=== PATIENT | female | born 1955 | race Caucasian/White ===

== ENCOUNTER 2019-10-16 10:41 | Inpatient (IN) ==
--- NOTE | 2019-10-15 11:44 | Anesthesiology Consultation ---
Date of Service October 15, 2019 Assessment & Plan (1) Encounter for pre-operative examination: COVID Status: As of 10/14 nurse assessment, patient denies travel to endemic area, known exposure/sick contacts, or symptoms of COVID19. 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 She wears appropriate PPE. Preoperative COVID19 testing was not completed. Will attempt to have patient come to [facility] for [place] testing today. If unable to complete today will order for DOS. Chart Review Chart Review: Acceptable Risk for Surgery and Patient NOT seen in Pre Admission Testing History Surgery Operation Date: 10/16/19 13:50 Proposed Procedures p Right Knee Tibial Plateau Fracture Open Reduction Internal Fixation - Shamar Berman MD Height/Weight Height: 5 ft 8 in Weight: 93.44 kg Allergies Allergy/AdvReac Type Severity Reaction Status Date / Time No Known Allergies Allergy Verified 10/15/19 07:12 Medications Home Medications Medication Instructions Recorded Confirmed Last Taken amitriptyline 50 mg PO HS 10/15/19 10/15/19 Unknown bupropion HCl 150 mg PO QAM 10/15/19 10/15/19 Unknown diltiazem HCl 180 mg PO QAM 10/15/19 10/15/19 Unknown duloxetine 30 mg PO QAM 10/15/19 10/15/19 Unknown ferrous sulfate 325 mg PO QAM 10/15/19 10/15/19 Unknown lisinopril 5 mg PO QAM 10/15/19 10/15/19 Unknown meloxicam 7.5 mg PO QAM 10/15/19 10/15/19 Unknown omeprazole 20 mg PO QAM 10/15/19 10/15/19 Unknown ropinirole 0.5 mg PO HS 10/15/19 10/15/19 Unknown simvastatin 20 mg PO HS 10/15/19 10/15/19 Unknown Past Medical History Medical History Basal cell carcinoma SHOULDER AND BACK AREA Depression GERD (gastroesophageal reflux disease) Hypertension Kidney stones HX OF AND LITHOTRIPSY Past Surgical History Surgical History Hx laparoscopic cholecystectomy Hx of colonoscopy Hx of hysterectomy Hx of lithotripsy Hx of local excision of skin lesion SHOULDER AND BACK AREA Social History Smoking Status: Never smoker Do You Dip or Chew Tobacco: No Hx Alcohol Use: No Hx Substance Use: No substance use type: does not use Testing Laboratory Results 10/14/19 WBC: 7.20 H/H: 13.4/40.6 PLATELETS: 279 SODIUM: 141 POTASSIUM: 3.5 CHLORIDE: 105 CO2: 32 BUN: 14.6 CREATININE: 0.87 GLUCOSE: 89 Electrocardiogram Date: 10/14/19 Findings: + NSR @ (79bpm) Chest X-Ray Date: 10/14/19 Findings: + NAD
--- NOTE | 2019-10-16 07:36 | History & Physical Report ---
Date of Service October 16, 2019 Assessment & Plan (1) Tibial plateau fracture, right: Plan is for Open reduction internal fixation right tibial plateau fracture. The risks/benefits/alternatives including but limited to pain, stiffness, infection, DVT, PE, non-union, damage to blood vessels or nerves were discussed and she wishes to proceed. History of Present Illness 64 year old female with PMHx for BCC, HTN, GERD who presents with acute onset of right knee pain. She was stepping down from a ladder and twisted and "jammed" her knee. X-rays at the ED demonstrated depressed lateral tibial plateau fracture. CT was subsequently obtained confirming the fracture. Patient denies headaches, sweats, fevers, chills, double vision, blurred vision, cough, sore throat, dysphagia, chest pain, sob, wheezing, n/v/d/c, numbness, tingling, fatigue, urinary symptoms, mood disorders. ROS positive for right knee pain and stiffness. Allergies Allergy/AdvReac Type Severity Reaction Status Date / Time No Known Allergies Allergy Verified 10/16/19 11:34 Home Medications Home Medications Medication Instructions Recorded Confirmed Type amitriptyline 50 mg PO HS 10/15/19 10/16/19 History bupropion HCl 150 mg PO QAM 10/15/19 10/16/19 History diltiazem HCl 180 mg PO QAM 10/15/19 10/16/19 History duloxetine 30 mg PO QAM 10/15/19 10/16/19 History ferrous sulfate 325 mg PO QAM 10/15/19 10/16/19 History lisinopril 5 mg PO QAM 10/15/19 10/16/19 History meloxicam 7.5 mg PO QAM 10/15/19 10/16/19 History omeprazole 20 mg PO QAM 10/15/19 10/16/19 History ropinirole 0.5 mg PO HS 10/15/19 10/16/19 History simvastatin 20 mg PO HS 10/15/19 10/16/19 History Past Med/Surg History Medical History Basal cell carcinoma SHOULDER AND BACK AREA Depression GERD (gastroesophageal reflux disease) Hypertension Kidney stones HX OF AND LITHOTRIPSY Surgical History Hx laparoscopic cholecystectomy Hx of colonoscopy Hx of hysterectomy Hx of lithotripsy Hx of local excision of skin lesion SHOULDER AND BACK AREA Social History Smoking Status: Never smoker Second Hand Exposure: No; Do You Dip or Chew Tobacco: No; Tobacco Cessation Education Requested by Patient: No Hx Alcohol Use: No Hx Substance Use: No Preferred Language: Albanian Communication Ability: Effective 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 Beliefs That Will Affect Care: None Current Living Situation: Spouse Other Information That Helps Us Care for You: No Feels Safe at Home: Yes Safety Concerns: Feels Safe At This Time Review of Systems All systems reviewed & are unremarkable except as noted in HPI & below Physical Exam Constitutional: well developed and well nourished; no acute distress Eyes: PERRL, conjunctivae normal, anicteric sclerae ENMT: external ear and nose normal, oropharynx normal Neck: trachea midline, no thyromegaly Respiratory: normal respiratory effort; no respiratory distress Cardiovascular: Rate/Rhythm: regular rate and regular rhythm Musculoskeletal: Right knee: Mild swelling. Tender palpation lateral joint line. She can get into full extension flexion is about 40 degrees Skin: no rashes, warm and dry Neurologic: patellar DTR's 2+ bilat, sensation intact Psychiatric: A+Ox3, euthymic affect Results & Data ([facility]) Diagnostic Findings Right knee x-rays demonstrate fractures to medial and lateral tibial plateau CT scan demonstrates a depressed posterior lateral fragment of the tibial plateau. Fragment measures 1.5 x 2 cm in its greatest dimensions the degree of depression is approximately 0.7 cm. There is minimal posterior fracture of the medial tibial plateau without any significant depression.
[~2019-10-16 10:41] MED LIST: CEFAZOLIN 2000MG 2,000 MG/15 ML SYR IV SCH; LACTATED RINGER'S 1,000 ML IV SCH
[2019-10-16] MEDS ORDERED: ROPIVACAINE 0.5% 5 MG/ML 30 ML VIAL ONE (12:04)
--- NOTE | 2019-10-16 12:57 | History & Physical Bridge Note ---
Date of Service October 16, 2019 History & Physical Bridge Note I have examined the patient, reviewed the History & Physical and in the interval since the performance of the History & Physical I have noted the following changes of clinical significance: Diagnosis code had been entered incorrectly, was listed as left side. This has been corrected to the right tibial plateau fracture.
[2019-10-16] MEDS ORDERED: MIDAZOLAM HCL 1 MG/ML 2ML VIAL ONE (14:17)
[2019-10-16] MEDS ORDERED: PROPOFOL IV EMULSION 10 MG/ML 20 ML VIAL IV ONE ×3 (14:17→16:47)
[2019-10-16] MEDS ORDERED: LIDOCAINE HCL 2% 2 ML VIAL/AMP(20MG/ML) INFIL ONE (14:17)
[2019-10-16] MEDS ORDERED: fentaNYL citrate 100 MCG/2 ML VIAL ONE (14:17)
[2019-10-16] MEDS ORDERED: EPINEPHrine INJ 1 MG/ML AMP ONE (14:17)
[2019-10-16] MEDS ORDERED: BUPIVACAINE 0.5 % 5 MG/1 ML MPF 30ML VIAL ONE (14:17)
[2019-10-16] MEDS ORDERED: METOCLOPRAMIDE HCL INJ 5 MG/ML 2 ML VIAL IV PRN ×2 (14:26→18:50)
[2019-10-16] MEDS ORDERED: ePHEDrine sulfate 50 MG/ML AMP IV PRN (14:26)
[2019-10-16] MEDS ORDERED: ONDANSETRON INJ 2 MG/ML 2 ML VIAL IV PRN ×2 (14:26→18:50)
[2019-10-16] MEDS ORDERED: fentaNYL citrate 100 MCG/2 ML VIAL IV PRN (14:26)
[2019-10-16] MEDS ORDERED: HYDROmorphone INJ 2 MG/ML SYR/VIAL IV PRN (14:26)
[2019-10-16] MEDS ORDERED: PROMETHAZINE HCL 12.5 MG in SODIUM CHLORIDE 0.9% 50 ML IV PRN (14:26)
[2019-10-16] MEDS ORDERED: ATROPINE SULFATE 0.1 MG/ML 10ML SYR IV PRN (14:26)
[2019-10-16] MEDS ORDERED: ONDANSETRON INJ 2 MG/ML 2 ML VIAL ONE (15:13)
[2019-10-16] MEDS ORDERED: KETOROLAC 30 MG/ML VIAL ONE (15:13)
[2019-10-16] MEDS ORDERED: GLYCOPYRROLATE 0.2 MG/ML VIAL ONE (15:13)
[2019-10-16] MEDS ORDERED: LABETALOL HCL IV 5 MG/ML 20ML IV ONE (15:48)
--- NOTE | 2019-10-16 17:18 | Operative Report ---
Post Operative Report Pre & Post Diagnosis Operation Date: 10/16/19 13:50 Pre-Op Diagnosis: Right Tibial Plateau Fracture Post-Op Diagnosis: Right Tibial Plateau Fracture I identified the patient and participated in the time-out.: Yes Procedure Operation Date: 10/16/19 13:50 Actual Procedures p Right Knee Tibial Plateau Fracture Open Reduction Internal Fixation(Right) - Shamar Berman MD Surgeon Shamar Berman MD Concrete Block Maker Maury Mays PA-C Estimated Blood Loss 20 Findings Consistent with Post-Op Diagnosis Specimens None Drains None Anesthesia Type MAC Spinal Regional Complications none Disposition Accompanied Patient To Recovery: No Disposition: Recovery Room Indications The patient is a 64-year-old female who sustained a fall from height landing onto the right leg. CT scan demonstrated that the fracture fragment measured 2 cm x 1.5 cm with 7 mm of articular depression. The fracture fragment was posterior lateral. We discussed various treatment measures including ORIF versus nonoperative treatment and if there was continued pain possible arthroplasty options. She wishes to proceed with open reduction internal fixation. Description of Procedure Risks, benefits, and alternatives to surgery including but not limited to infection, pain, stiffness, nonunion, need for revision surgery, DVT, damage to blood vessels, damage to nerves, risks of anesthesia were discussed with the patient and they wished to proceed. The patient was identified and laterality was confirmed and marked. The patient received a preoperative antibiotic and was transferred to the operating room and placed in supine position and induced into general endotracheal anesthesia. Examination under anesthesia demonstrated a positive Lockman's, positive posterior drawer. There was increased laxity to valgus stress but with a solid endpoint. My suspicion is that given the location of the fracture she has a extreme pivot shift with instead of kissing lesions had a fracture of the posterior lateral tibial plateau in the region that is typically seen simply with bone bruising. A well-padded tourniquet was placed in the leg. The limb was then prepped and draped in the usual standard manner with ChloraPrep. The limb was exsanguinated and the tourniquet was inflated. I made a hockey style incision over the lateral aspect of leg and sharp incision through skin and then using Bovie electrocautery to achieve hemostasis. Her fracture was more posterior than is typical. I incised through the iliotibial band fascia and dissect down to the fracture site. I also dissected more posteriorly. I identified the proximal fibula and dissected the LCL and mobilized the tissue superior to this. There was zone of injury that we then explored and identified the fracture fragment. I elevated the fracture fragment into position confirmed reduction with fluoroscopy and then provisionally pinned it in place with K wires. I then backfilled the void with cancellus cubes. I then under fluoroscopic guidance positioned a 4 hole Synthes proximal tibial precontoured locking plate. Once I was satisfied with the positioning of the plate and provisionally pinned this into position. I confirmed reduction of the fracture on AP and lateral fluoroscopy views. I also confirmed plate placement and alignment. I ensure that the plate was posterior enough in order to get appropriate fixation into the fracture fragment and this was a little bit more posterior than typical placement for tibial plateau fracture. I then placed a nonlocking screw distally to reduce the plate to bone. I then placed a rafting screw in a locking hole proximally. I then confirmed we are maintaining reduction and placed an additional 2 locking screws. The most posterior locking screw I attempted to place but was starting to go out the back of the tibia and did not place a screw in this most posterior hole. I then placed 2 kickstand screws into position. The nonlocking screw we had used initially was too proud. This was removed and we placed a locking screw in the distal aspect of the plate. The wound was thoroughly irrigated. The iliotibial band was loosely reapproximated with interrupted #1 Vicryl suture, but not overly tight as to prevent causing an iatrogenic compartment syndrome. Subcutaneous tissues closed with interrupted 2-0 Vicryl suture. The skin was closed with kale. A sterile dressing was applied and a brace locked in extension was placed. All needle and sponge counts were correct at the end of the procedure. The patient was transferred to the PACU in stable condition without apparent complication. I attest to the content of the Intraoperative Record and any orders documented therein. Any exceptions are noted below.
--- NOTE | 2019-10-16 17:20 | Fluoroscopy Report ---
FL knee RT 1 or 2V CLINICAL HISTORY: RIGHT KNEE TIBIAL PLATEAU ORIF COMPARISON STUDY: None. FLUOROSCOPY TIME: 1 minute and 43 seconds. FLUOROSCOPIC IMAGES: 2 FINDINGS: Fluoroscopy was provided during internal fixation of the proximal right tibia. Hardware is intact. Alignment appears anatomic. There are no unexpected radiopaque foreign bodies. IMPRESSION: Fluoroscopy provided for proximal right tibial internal fixation. ACT 112: Negative or not required by law. Electronically signed by: Dre Limon M.D. 10/16/2019 5:19 PM
--- NOTE | 2019-10-16 18:01 | Anesthesiology Progress Note ---
Date of Service October 16, 2019 Anesthesia Post Procedure Vital Signs Vital Signs: Temp Pulse Pulse Resp BP Pulse Ox 10/16/19 17:50 36.9 C 84 19 147/90 H 95 10/16/19 17:40 89 22 148/87 H 99 10/16/19 17:32 36.8 C 89 18 133/81 97 10/16/19 11:47 36.9 C 73 18 146/81 H 94 Transfer of Care Handoff Completed per policy Notes Mental Status: alert / awake / arousable Patient Amnestic to Procedure: Yes Nausea / Vomiting: adequately controlled Pain: adequately controlled Airway Patency, RR, SpO2: stable & adequate BP & HR: stable & adequate Hydration State: stable & adequate Neuraxial Anesthesia: was administered and sensory block is resolving Anesthetic Complications: no major complications apparent and Pt Satisfied with anesthetic care
[2019-10-16] MEDS ORDERED: NALOXONE HCL 0.4 MG/1 ML VIAL/CARP IV PRN (18:50)
[2019-10-16] MEDS ORDERED: HYDROmorphone INJ 0.5 MG/0.5 ML SYR IV PRN (18:50)
[2019-10-16] MEDS ORDERED: bisacodyL 10 MG SUPP PR PRN (18:50)
[2019-10-16] MEDS ORDERED: MAGNESIUM HYDROXIDE SUSP 30 ML UDC PO PRN (18:50)
[2019-10-16] MEDS ORDERED: SODIUM CHLORIDE 0.9% 1000ML 1,000 ML IV SCH (19:15)
[2019-10-16] MEDS: ACETAMINOPHEN 500 MG TAB PO SCH (20:33)
[2019-10-16] MEDS: AMITRIPTYLINE HCL 50 MG TAB PO SCH (20:33)
[2019-10-16] MEDS: SIMVASTATIN 20 MG TAB PO SCH (20:33)
[2019-10-16] MEDS: ROPINIROLE HCL 0.25 MG TABLET PO SCH (20:33)
[2019-10-16] MEDS: SENNA 8.6 MG TAB PO SCH (20:33)
[2019-10-16] MEDS: ASPIRIN 81 MG ECTAB PO SCH (20:33)
[2019-10-16] MEDS: DOCUSATE SODIUM 100 MG CAP PO SCH (20:33)
[2019-10-16] MEDS: CEFAZOLIN 2000MG 2,000 MG/15 ML SYR IV SCH (23:24)
[2019-10-17] MEDS: OXYCODONE HCL IR 5 MG TAB (IMMEDIATE RELEASE) PO PRN ×2 (02:23→15:58)
[2019-10-17] MEDS: ACETAMINOPHEN 500 MG TAB PO SCH ×3 (06:06→21:42)
[2019-10-17 06:22] LABS: Hematocrit (blood only) 37.6 % (37-47); Hemoglobin 12.3 g/dL (12.0-16.0); Mean Corpuscular Hemoglobin 30.5 pg (25-34); Mean Corpuscular Hgb Conc 32.7 g/dL (32-36); Mean Corpuscular Volume 93.3 fL (80-100); Mean Platelet Volume 9.5 fL (7.4-10.4); Platelet Count 233 K/uL (130-400); RDW Coefficient of Variation 12.9 % (11.5-14.5); RDW Standard Deviation 43.5 fL (36.4-46.3); Red Blood Count 4.03 M/uL (4.2-5.4); White Blood Count 8.43 K/uL (4.8-10.8)
[2019-10-17 06:57] LABS: BUN Creatinine Ratio 15.3 (10-20); Calcium 8.5 mg/dl (8.5-10.1); Creatinine Clr Calc Pharmacy 73.6 ml/min; Est GFR (African American) 76.7; Est GFR (Non-African American) 66.2; Potassium 4.3 mmol/L (3.5-5.1)
[2019-10-17] MEDS: CEFAZOLIN 2000MG 2,000 MG/15 ML SYR IV SCH (08:29)
--- NOTE | 2019-10-17 10:05 | Orthopedic Progress Note ---
Date of Service October 17, 2019 Assessment & Plan (1) Tibial plateau fracture, right: Postop day 1 status post ORIF right tibial plateau fracture Hypoxia? Chart was showing that her pulse ox had read 34 and 1 minute later was back to 91. Patient relates a history of this happening once before many years ago. Dr. Saez seeing the patient currently and feels that this was likely a skewed reading from the pulse oximeter. Will defer to his recommendations at this time. PT/OT protocols. Toe-touch weightbearing right lower extremity DVT prophylaxis-aspirin p.o. twice daily Pain management-oxycodone, hydromorphone. Patient states that she limits her medications at home when taking for pain. She states that she is not overly sensitive to pain medications and has had Percocet in the past without causing oversedation. DC planning-plan for discharge to home when medically stable Admission and Anticipated Discharge Date Admission Date: October 16, 2019 Subjective Postop day 1 Patient lying in bed awake and alert. She currently has O2 per nasal cannula 2 L. Nursing related that the patient had dropped her O2 saturations down quite low last night. Respiratory therapy was called and put her on 15 L per Ventimask. She apparently responded well to the regimen and currently does not remember much of what happened last night. During my interview, Dr. Saez, who has been consulted has come in to see the patient as well. Currently she feels fine and denies any shortness of breath, chest pain, lightheadedness. Her pain is controlled with her right knee. Physical Exam Physical Exam: Immobilizer was loosened and dressing is clean, dry, and intact. Calves are soft nontender. Neurovascular intact. Toes are mobile. Immobilizer was placed back on. Results & Data ([facility]) Vital Signs (Past 12 Hours) Vital Signs Temp Pulse Resp BP BP Pulse Ox 10/17/19 07:11 37 C 74 16 135/76 93 10/17/19 06:22 93 10/17/19 06:10 95 10/17/19 06:04 93 10/17/19 04:39 91 10/17/19 04:33 93 10/17/19 04:32 87 L 10/17/19 04:19 94 10/17/19 03:34 36.5 C 90 16 133/70 91 10/17/19 03:33 34 L 10/16/19 23:30 36.8 C 74 18 151/80 H 91 10/16/19 22:04 36.8 C 82 16 150/80 H 92 Laboratory Results Laboratory Results WBC 8.43 K/uL (4.8-10.8) 10/17/19 06:03 RBC 4.03 M/uL (4.2-5.4) L 10/17/19 06:03 Hgb 12.3 g/dL (12.0-16.0) 10/17/19 06:03 Hct 37.6 % (37-47) 10/17/19 06:03 MCV 93.3 fL (80-100) 10/17/19 06:03 MCH 30.5 pg (25-34) 10/17/19 06:03 MCHC 32.7 g/dL (32-36) 10/17/19 06:03 RDW Std Deviation 43.5 fL (36.4-46.3) 10/17/19 06:03 RDW Coeff of Florina 12.9 % (11.5-14.5) 10/17/19 06:03 Plt Count 233 K/uL (130-400) 10/17/19 06:03 MPV 9.5 fL (7.4-10.4) 10/17/19 06:03 Sodium 140 mmol/L (136-145) 10/17/19 06:03 Potassium 4.3 mmol/L (3.5-5.1) 10/17/19 06:03 Chloride 108 mmol/L (98-107) H 10/17/19 06:03 Carbon Dioxide 29 mmol/L (21-32) 10/17/19 06:03 Anion Gap 4.0 (3-11) 10/17/19 06:03 BUN 14 mg/dl (7-18) 10/17/19 06:03 Creatinine 0.91 mg/dl (0.6-1.2) 10/17/19 06:03 Est Cr Clr Drug Dosing 73.6 ml/min 10/17/19 06:03 Est GFR ( Amer) 76.7 10/17/19 06:03 Est GFR (Non-Af Amer) 66.2 10/17/19 06:03 BUN/Creatinine Ratio 15.3 (10-20) 10/17/19 06:03 Glucose 130 mg/dl (70-99) H 10/17/19 06:03 Calcium 8.5 mg/dl (8.5-10.1) 10/17/19 06:03 COVID-19 Eval Order Cancelled 10/16/19 11:25 COVID-19 PCR Cancelled 10/16/19 11:25 SARS-CoV-2, RNA, NAAT NEGATIVE (NEGATIVE) 10/16/19 Unknown Blood Type B Positive 10/16/19 12:24 Antibody Screen NEGATIVE 10/16/19 12:24
[2019-10-17] MEDS: DOCUSATE SODIUM 100 MG CAP PO SCH ×2 (10:12→20:48)
[2019-10-17] MEDS: DULOXETINE HCL 30 MG CAP PO SCH (10:12)
[2019-10-17] MEDS: FERROUS SULFATE 325 MG TAB PO SCH (10:13)
[2019-10-17] MEDS: ASPIRIN 81 MG ECTAB PO SCH ×2 (10:13→20:48)
[2019-10-17] MEDS: MULTIVITAMIN TAB PO SCH (10:14)
[2019-10-17] MEDS: BuPROPion XL 150 MG TABCR PO SCH (10:16)
[2019-10-17] MEDS: dilTIAZem ER 180 MG CAPCR PO SCH (10:16)
[2019-10-17] MEDS: PANTOprazole 40 MG TAB PO SCH (10:16)
[2019-10-17] MEDS: lisinopriL 5 MG TAB PO SCH (10:17)
--- NOTE | 2019-10-17 19:26 | Hospitalist Progress Note ---
Date of Service October 17, 2019 Assessment & Plan (1) Hypoxia: by far most c/w atelectasis - no dyspnea, exam findings/cough after IS quite c/w this. does not fit w pneumonia (no cough/dyspnea/fever/etc) or PE (does have fracture and immobility but no tachycardia/dyspnea/pleuritic pain) --> for now encourage IS use (5x/hr) try to wean O2, increase activity. -probably was also incited some by resp depression from pain meds when taken at night and suspect some underlying SHERWIN (also notes always tired) -wean O2, supportive care. if can't wean, then w/u further (2) Neck pain: no findings of hx or PE concerning for bony lesions is c/w muscle strain (3) Somatic dysfunction of cervical region: OMT as above voltaren gel to area (4) DVT prophylaxis: per ortho (asa bid and scd) Admission and Anticipated Discharge Date Admission Date: October 16, 2019 Subjective asked to see for hypoxia, later asked to revisit for neck and ear pain hypoxia - no shortness of breath. no cough. no chest pain. no tachycardia. no f/c/s. didn't feel it even when pulse ox was down overnight. later revisit while O2 wasn't able to be weaned, still no short of breath neck pain - when she fell she hit her head. neg CT head at outside hospital. pain side of neck and ear. crunching sounds when she moves neck around some Review of Systems Review of Systems: All systems reviewed & are unremarkable except as noted in HPI & below Physical Exam Physical Exam: gen aaox3 pleasant nad heent nc at mmm cardio reg no r/m/g lungs faint bibasilar rales no other adventitious findings no rhonchi no wheeze no accessory msucles good effort msk/ost - no significant bony tenderness to palp full ROM L lateral Cspine paraspinals high tone/tender/decreased ROM - worst at mastoid region (but soft tissue tenderness at insertion not bony tenderness above) - direct/inhibitory pressure/gentle unwinding - improved - pt tolerated well. pt demonstrated incentive spirometry - coughed after each use Results & Data Results & Data ([facility]) Vital Signs (Past 12 Hours) Vital Signs Temp Pulse Resp BP Pulse Ox Pulse Ox 10/17/19 16:03 100.0 F H 78 16 147/74 H 92 10/17/19 15:13 88 L 10/17/19 13:23 90 10/17/19 11:03 98 PG Care Time/CCT Total # of Minutes Spent Total Time Spent with Patient: Total time spent is greater than 50% in coordination of care (as documented) at patient's floor/unit and/or counseling patient: Coding Level of Care Code 85404 Subseq Hosp Care Lvl 3 Diagnoses Hypoxia R09.02 Neck pain M54.2 Somatic dysfunction of cervical region M99.01 DVT prophylaxis Z29.9 CPT Codes Musculoskeletal - Musculoskeletal: 733[address] Oste[address] Alan Tr 1-2 Body regions ([id number])
[2019-10-17] MEDS: DICLOFENAC SOD 1% GEL 100 GM TUBE EXT SCH (20:42)
[2019-10-17] MEDS: SENNA 8.6 MG TAB PO SCH (20:48)
[2019-10-17] MEDS: ROPINIROLE HCL 0.25 MG TABLET PO SCH (20:48)
[2019-10-17] MEDS: SIMVASTATIN 20 MG TAB PO SCH (20:48)
[2019-10-17] MEDS: AMITRIPTYLINE HCL 50 MG TAB PO SCH (20:48)
[2019-10-18] MEDS: OXYCODONE HCL IR 5 MG TAB (IMMEDIATE RELEASE) PO PRN ×2 (00:19→08:23)
[2019-10-18] MEDS: ACETAMINOPHEN 500 MG TAB PO SCH (05:54)
[2019-10-18 06:19] LABS: Basophils # (auto) 0.03 K/uL (0-0.2); Basophils % (auto) 0.4 %; Eosinophils # (auto) 0.25 K/uL (0-0.5); Eosinophils % (auto) 3.5 %; Hematocrit (blood only) 34.5 % (37-47); Hemoglobin 11.4 g/dL (12.0-16.0); Immature Granulocytes # (auto) 0.01 K/uL (0.00-0.02); Immature Granulocytes % (auto) 0.1 %; Lymphocytes # (auto) 1.41 K/uL (1.2-3.4); Lymphocytes % (auto) 19.8 %; Mean Corpuscular Hemoglobin 30.5 pg (25-34); Mean Corpuscular Volume 92.2 fL (80-100); Mean Platelet Volume 9.6 fL (7.4-10.4); Monocytes # (auto) 0.86 K/uL (0.11-0.59); Monocytes % (auto) 12.1 %; Neutrophils # (auto) 4.57 K/uL (1.4-6.5); Neutrophils % (auto) 64.1 %; Platelet Count 237 K/uL (130-400); RDW Coefficient of Variation 12.8 % (11.5-14.5); RDW Standard Deviation 43.3 fL (36.4-46.3); Red Blood Count 3.74 M/uL (4.2-5.4); White Blood Count 7.13 K/uL (4.8-10.8)
[2019-10-18 07:21] LABS: Calcium 8.4 mg/dl (8.5-10.1); Creatinine Clr Calc Pharmacy 81.6 ml/min; Est GFR (Non-African American) 75.1; Potassium 3.5 mmol/L (3.5-5.1)
[2019-10-18] MEDS: PANTOprazole 40 MG TAB PO SCH (08:19)
[2019-10-18] MEDS: DOCUSATE SODIUM 100 MG CAP PO SCH (08:19)
[2019-10-18] MEDS: BuPROPion XL 150 MG TABCR PO SCH (08:19)
[2019-10-18] MEDS: FERROUS SULFATE 325 MG TAB PO SCH (08:19)
[2019-10-18] MEDS: ASPIRIN 81 MG ECTAB PO SCH (08:19)
[2019-10-18] MEDS: dilTIAZem ER 180 MG CAPCR PO SCH (08:20)
[2019-10-18] MEDS: MULTIVITAMIN TAB PO SCH (08:20)
[2019-10-18] MEDS: DULOXETINE HCL 30 MG CAP PO SCH (08:20)
[2019-10-18] MEDS: lisinopriL 5 MG TAB PO SCH (08:20)
[2019-10-18] MEDS: DICLOFENAC SOD 1% GEL 100 GM TUBE EXT SCH (08:20)
--- NOTE | 2019-10-18 08:33 | Orthopedic Progress Note ---
Date of Service October 18, 2019 Assessment & Plan (1) Tibial plateau fracture, right: Postop day 2 status post ORIF right tibial plateau fracture Appears to be maintaining O2 sats on room air. Will have PT work with her again today. PT/OT protocols. Toe-touch weightbearing right lower extremity DVT prophylaxis-aspirin p.o. twice daily Pain management-oxycodone, hydromorphone. Patient states that she limits her medications at home when taking for pain. She states that she is not overly sensitive to pain medications and has had Percocet in the past without causing oversedation. DC planning-plan for discharge to home when medically stable Admission and Anticipated Discharge Date Admission Date: October 16, 2019 Subjective POD 2 Patient sitting up in bed. No complaints. Denies SOB,CP,LH. O2 sats this AM 93 on room air. Pain controlled. Physical Exam Physical Exam: Incision is C/D/I. Calves are soft,NT. NV intact. Immobilizer reapplied. Results & Data ([facility]) Vital Signs (Past 12 Hours) Vital Signs Temp Pulse Resp BP Pulse Ox 10/18/19 07:00 36.9 C 82 16 152/82 H 93 10/18/19 05:54 92 10/18/19 00:23 93 10/17/19 23:10 37.1 C 72 15 127/66 89 L Laboratory Results Laboratory Results WBC 7.13 K/uL (4.8-10.8) 10/18/19 05:37 RBC 3.74 M/uL (4.2-5.4) L 10/18/19 05:37 Hgb 11.4 g/dL (12.0-16.0) L 10/18/19 05:37 Hct 34.5 % (37-47) L 10/18/19 05:37 MCV 92.2 fL (80-100) 10/18/19 05:37 MCH 30.5 pg (25-34) 10/18/19 05:37 MCHC 33.0 g/dL (32-36) 10/18/19 05:37 RDW Std Deviation 43.3 fL (36.4-46.3) 10/18/19 05:37 RDW Coeff of Florina 12.8 % (11.5-14.5) 10/18/19 05:37 Plt Count 237 K/uL (130-400) 10/18/19 05:37 MPV 9.6 fL (7.4-10.4) 10/18/19 05:37 Immature Gran % (Auto) 0.1 % 10/18/19 05:37 Neut % (Auto) 64.1 % 10/18/19 05:37 Lymph % (Auto) 19.8 % 10/18/19 05:37 [place] % (Auto) 12.1 % 10/18/19 05:37 Eos % (Auto) 3.5 % 10/18/19 05:37 Baso % (Auto) 0.4 % 10/18/19 05:37 Neut # (Auto) 4.57 K/uL (1.4-6.5) 10/18/19 05:37 Lymph # (Auto) 1.41 K/uL (1.2-3.4) 10/18/19 05:37 [place] # (Auto) 0.86 K/uL (0.11-0.59) H 10/18/19 05:37 Eos # (Auto) 0.25 K/uL (0-0.5) 10/18/19 05:37 Baso # (Auto) 0.03 K/uL (0-0.2) 10/18/19 05:37 Immature Gran # (Auto) 0.01 K/uL (0.00-0.02) 10/18/19 05:37 Sodium 140 mmol/L (136-145) 10/18/19 05:37 Potassium 3.5 mmol/L (3.5-5.1) D 10/18/19 05:37 Chloride 107 mmol/L (98-107) 10/18/19 05:37 Carbon Dioxide 29 mmol/L (21-32) 10/18/19 05:37 Anion Gap 4.0 (3-11) 10/18/19 05:37 BUN 11 mg/dl (7-18) 10/18/19 05:37 Creatinine 0.82 mg/dl (0.6-1.2) 10/18/19 05:37 Est Cr Clr Drug Dosing 81.6 ml/min 10/18/19 05:37 Est GFR ( Amer) 87.0 10/18/19 05:37 Est GFR (Non-Af Amer) 75.1 10/18/19 05:37 BUN/Creatinine Ratio 13.0 (10-20) 10/18/19 05:37 Glucose 104 mg/dl (70-99) H 10/18/19 05:37 Calcium 8.4 mg/dl (8.5-10.1) L 10/18/19 05:37 COVID-19 Eval Order Cancelled 10/16/19 11:25 COVID-19 PCR Cancelled 10/16/19 11:25 SARS-CoV-2, RNA, NAAT NEGATIVE (NEGATIVE) 10/16/19 Unknown Blood Type B Positive 10/16/19 12:24 Antibody Screen NEGATIVE 10/16/19 12:24
--- NOTE | 2019-10-18 14:09 | Discharge Summary ---
Date of Service October 18, 2019 Admission HPI Per Admitting Provider 64 year old female with PMHx for BCC, HTN, GERD who presents with acute onset of right knee pain. She was stepping down from a ladder and twisted and "jammed" her knee. X-rays at the ED demonstrated depressed lateral tibial plateau fracture. CT was subsequently obtained confirming the fracture. Patient denies headaches, sweats, fevers, chills, double vision, blurred vision, cough, sore throat, dysphagia, chest pain, sob, wheezing, n/v/d/c, numbness, tingling, fatigue, urinary symptoms, mood disorders. ROS positive for right knee pain and stiffness. Admission Exam Per Admitting Provider Constitutional: well developed and well nourished; no acute distress Eyes: PERRL, conjunctivae normal, anicteric sclerae ENMT: external ear and nose normal, oropharynx normal Neck: trachea midline, no thyromegaly Respiratory: normal respiratory effort; no respiratory distress Cardiovascular: Rate/Rhythm: regular rate and regular rhythm Musculoskeletal: Right knee: Mild swelling. Tender palpation lateral joint line. She can get into full extension flexion is about 40 degrees Skin: no rashes, warm and dry Neurologic: patellar DTR's 2+ bilat, sensation intact Psychiatric: A+Ox3, euthymic affect Principal Diagnosis Right knee lateral tibial plateau fracture, hypoxia Discharge Exam Constitutional well developed and well nourished; no acute distress Eyes PERRL, conjunctivae normal, anicteric sclerae ENMT external ear and nose normal, oropharynx normal Neck trachea midline, no thyromegaly Respiratory normal respiratory effort; no respiratory distress Cardiovascular Rate/Rhythm: regular rate and regular rhythm Skin no rashes, warm and dry Neurologic patellar DTR's 2+ bilat, sensation intact Psychiatric A+Ox3, euthymic affect Discharge Data Allergies Allergy/AdvReac Type Severity Reaction Status Date / Time No Known Allergies Allergy Verified 10/16/19 11:34 Consultations 10/16/19 18:50 Consult Case Management - Discharge Planning Routine 10/17/19 08:51 Consult Hospitalist Routine Procedures Performed Operation Date: 10/16/19 13:50 Actual Procedures p Right Knee Tibial Plateau Fracture Open Reduction Internal Fixation(Right) - Shamar Berman MD Ordered Studies 10/16/19 07:00 FL fluoroscopy <1hr Routine FL knee RT 1 or 2V Routine 10/16/19 14:26 US - OR guided needle placemen Stat Hospital Course (1) Tibial plateau fracture, right: Patient presented for same day admission following ORIF right lateral tibial plateau fracture on 10/16/19. She tolerated procedure well. Post- operatively, her activity was progressed and well tolerated. Labs remained stable- lowest hemoglobin recorded:11.4. On POD#0 patient developed hypoxia overnight after taking oxycodone. She had a recorded O2 sat of 34 and then quickly returned to 91. It is unclear if the the 34 was a true finding or error, however her saturations were in the low 90s on O2. Dr. Carlos Saez of medical service was consulted for medical management during admission. Pain controlled on oral medications. Please refer to daily progress notes and PT notes for complete details. By POD#2 patient's hypoxia had resolved. After exam on 10/18/19, patient was felt to be stable for discharge home. She is to be TTWB on her RLE. Patient will f/u in the office in about 2 weeks for further evaluation including x-rays and incision check, sooner if having any issues or concerns. Postop day 2 status post ORIF right tibial plateau fracture Appears to be maintaining O2 sats on room air. Will have PT work with her again today. PT/OT protocols. Toe-touch weightbearing right lower extremity DVT prophylaxis-aspirin p.o. twice daily Pain management-oxycodone, hydromorphone. Patient states that she limits her medications at home when taking for pain. She states that she is not overly sensitive to pain medications and has had Percocet in the past without causing oversedation. DC planning-plan for discharge to home when medically stable Lab Results 10/16/19 10/16/19 10/16/19 Range/Units 11:25 11:25 12:24 WBC (4.8-10.8) K/uL RBC (4.2-5.4) M/uL Hgb (12.0-16.0) g/dL Hct (37-47) % MCV (80-100) fL MCH (25-34) pg MCHC (32-36) g/dL RDW Std Deviation (36.4-46.3) fL RDW Coeff of Florina (11.5-14.5) % Plt Count (130-400) K/uL MPV (7.4-10.4) fL Immature Gran % (Auto) % Neut % (Auto) % Lymph % (Auto) % Chaves % (Auto) % Eos % (Auto) % Baso % (Auto) % Neut # (Auto) (1.4-6.5) K/uL Lymph # (Auto) (1.2-3.4) K/uL Chaves # (Auto) (0.11-0.59) K/uL Eos # (Auto) (0-0.5) K/uL Baso # (Auto) (0-0.2) K/uL Immature Gran # (Auto) (0.00-0.02) K/uL Sodium (136-145) mmol/L Potassium (3.5-5.1) mmol/L Chloride (98-107) mmol/L Carbon Dioxide (21-32) mmol/L Anion Gap (3-11) BUN (7-18) mg/dl Creatinine (0.6-1.2) mg/dl Est Cr Clr Drug Dosing ml/min Est GFR ( Amer) Est GFR (Non-Af Amer) BUN/Creatinine Ratio (10-20) Glucose (70-99) mg/dl Calcium (8.5-10.1) mg/dl COVID-19 Eval Order Cancelled COVID-19 PCR Cancelled SARS-CoV-2, RNA, NAAT (NEGATIVE) Blood Type B Positive Antibody Screen NEGATIVE 10/16/19 10/17/19 10/17/19 Range/Units Unknown 06:03 06:03 WBC 8.43 (4.8-10.8) K/uL RBC 4.03 L (4.2-5.4) M/uL Hgb 12.3 (12.0-16.0) g/dL Hct 37.6 (37-47) % MCV 93.3 (80-100) fL MCH 30.5 (25-34) pg MCHC 32.7 (32-36) g/dL RDW Std Deviation 43.5 (36.4-46.3) fL RDW Coeff of Florina 12.9 (11.5-14.5) % Plt Count 233 (130-400) K/uL MPV 9.5 (7.4-10.4) fL Immature Gran % (Auto) % Neut % (Auto) % Lymph % (Auto) % Chaves % (Auto) % Eos % (Auto) % Baso % (Auto) % Neut # (Auto) (1.4-6.5) K/uL Lymph # (Auto) (1.2-3.4) K/uL Chaves # (Auto) (0.11-0.59) K/uL Eos # (Auto) (0-0.5) K/uL Baso # (Auto) (0-0.2) K/uL Immature Gran # (Auto) (0.00-0.02) K/uL Sodium 140 (136-145) mmol/L Potassium 4.3 (3.5-5.1) mmol/L Chloride 108 H (98-107) mmol/L Carbon Dioxide 29 (21-32) mmol/L Anion Gap 4.0 (3-11) BUN 14 (7-18) mg/dl Creatinine 0.91 (0.6-1.2) mg/dl Est Cr Clr Drug Dosing 73.6 ml/min Est GFR ( Amer) 76.7 Est GFR (Non-Af Amer) 66.2 BUN/Creatinine Ratio 15.3 (10-20) Glucose 130 H (70-99) mg/dl Calcium 8.5 (8.5-10.1) mg/dl COVID-19 Eval Order COVID-19 PCR SARS-CoV-2, RNA, NAAT NEGATIVE (NEGATIVE) Blood Type Antibody Screen 10/18/19 10/18/19 Range/Units 05:37 05:37 WBC 7.13 (4.8-10.8) K/uL RBC 3.74 L (4.2-5.4) M/uL Hgb 11.4 L (12.0-16.0) g/dL Hct 34.5 L (37-47) % MCV 92.2 (80-100) fL MCH 30.5 (25-34) pg MCHC 33.0 (32-36) g/dL RDW Std Deviation 43.3 (36.4-46.3) fL RDW Coeff of Florina 12.8 (11.5-14.5) % Plt Count 237 (130-400) K/uL MPV 9.6 (7.4-10.4) fL Immature Gran % (Auto) 0.1 % Neut % (Auto) 64.1 % Lymph % (Auto) 19.8 % Chaves % (Auto) 12.1 % Eos % (Auto) 3.5 % Baso % (Auto) 0.4 % Neut # (Auto) 4.57 (1.4-6.5) K/uL Lymph # (Auto) 1.41 (1.2-3.4) K/uL Chaves # (Auto) 0.86 H (0.11-0.59) K/uL Eos # (Auto) 0.25 (0-0.5) K/uL Baso # (Auto) 0.03 (0-0.2) K/uL Immature Gran # (Auto) 0.01 (0.00-0.02) K/uL Sodium 140 (136-145) mmol/L Potassium 3.5 D (3.5-5.1) mmol/L Chloride 107 (98-107) mmol/L Carbon Dioxide 29 (21-32) mmol/L Anion Gap 4.0 (3-11) BUN 11 (7-18) mg/dl Creatinine 0.82 (0.6-1.2) mg/dl Est Cr Clr Drug Dosing 81.6 ml/min Est GFR ( Amer) 87.0 Est GFR (Non-Af Amer) 75.1 BUN/Creatinine Ratio 13.0 (10-20) Glucose 104 H (70-99) mg/dl Calcium 8.4 L (8.5-10.1) mg/dl COVID-19 Eval Order COVID-19 PCR SARS-CoV-2, RNA, NAAT (NEGATIVE) Blood Type Antibody Screen Total Time Total Time Spent Total Time Spent (In Minutes): 20 Discharge Plan Discharge Items Patient Disposition: Home - Self-Care Reason For Visit: Tibial Plateau Fracture Discharge Diagnosis: Right tibial plateau fracture Activity: Per Instructions section Weightbearing: Right non-weightbearing Weightbearing Comment: With walker or crutches. Use immobilizer at all times. May remove for bathing or changing clothes. Non-emergency contact: Surgeon Call non-emergency contact if: your pain is not controlled, your temperature is above 101.5, your wound has increased redness and your wound has increased drainage Follow-up/Referrals: Eliane Heller M.D. [Primary Care Provider] - Diet: Regular Addtl Attending Provider Instructions: Nonweightbearing on the right lower extremity. Elevate the right lower extremity when at rest. Change dressing daily. Continue to use an Eduardo wrap around the knee to secure the dressing and provide compression. Ice packs to the right knee while at rest. Keep the leg in full extension with the immobilizer is off. Continue to use the immobilizer at all times except for when using ice packs, bathing, changing clothes. Follow-up with Dr. Berman in 10 to 14 days from the day of surgery. Call for an appointment if one has not been made for you. Stand-Alone Forms: My [facility] blogTV, Opioid Pain Management Medications and DC Order Prescriptions: New aspirin 81 mg Tablet,Delayed Release (Dr/Ec) 81 mg PO BID 30 Days Qty: 60 RF: 0 acetaminophen 500 mg Tablet 1,000 mg PO Q8 14 Days Qty: 84 RF: 0 oxycodone 5 mg Tablet 5 mg PO Q4H MDD 6 tabs PRN (Reason: pain) Qty: 18 RF: 0 Continued diltiazem HCl 180 mg Capsule,Extended Release 24 Hr 180 mg PO QAM RF: 0 amitriptyline 50 mg Tablet 50 mg PO HS RF: 0 simvastatin 20 mg Tablet 20 mg PO HS RF: 0 ropinirole 0.5 mg Tablet 0.5 mg PO HS RF: 0 lisinopril 5 mg Tablet 5 mg PO QAM RF: 0 ferrous sulfate 325 mg (65 mg iron) Tablet,Delayed Release (Dr/Ec) 325 mg PO QAM RF: 0 bupropion HCl 150 mg Tablet Extended Release 24 Hr 150 mg PO QAM RF: 0 duloxetine 30 mg Capsule,Delayed Release(Dr/Ec) 30 mg PO QAM RF: 0 omeprazole 20 mg Tablet,Delayed Release (Dr/Ec) 20 mg PO QAM RF: 0 Discontinued meloxicam 7.5 mg Tablet 7.5 mg PO QAM RF: 0 Discharge Orders: Discharge Order (Routine); Ordered 10/18/19 Ordered By: Samuel Rodriguez/Other Patient Handouts: DVT Post Op Prevention Admission Data Admit Date/Time: 10/16/19 17:35 Attending Provider: Shamar Berman Admit Provider: Shamar Berman Primary Care Provider: Eliane Heller Other Providers: Chris Colón Other Interventions: Discharge Summary Assessment (RN) Last Done: 10/18/19 10:51
--- NOTE | 2019-10-18 19:59 | Hospitalist Progress Note ---
Date of Service October 18, 2019 Assessment & Plan (1) Hypoxia: by far most c/w atelectasis - no dyspnea, exam findings/cough after IS quite c/w this. does not fit w pneumonia (no cough/dyspnea/fever/etc) or PE (does have fracture and immobility but no tachycardia/dyspnea/pleuritic pain) --> and improved as would be expected for atelectasis treatment -probably was also incited some by resp depression from pain meds when taken at night and suspect some underlying SHERWIN (also notes always tired) -off O2, stable for home. continue to use incentive spirometer at home for next several days. sleep study as outpt in near future (2) Neck pain: no findings of hx or PE concerning for bony lesions is c/w muscle strain improved w OMT and diclofenac gel (3) Somatic dysfunction of cervical region: OMT done 10/16 voltaren gel to area (4) DVT prophylaxis: per ortho (asa bid and scd) Admission and Anticipated Discharge Date Admission Date: October 16, 2019 Subjective feeling better. off O2. no sob. no new symptosm at all. neck pain feels better as well. Review of Systems Review of Systems: Unobtainable due to cognitive status Physical Exam Physical Exam: vitals noted nad. aaox3 pleasant. heent nc at mmm. lungs cta b/l no r/r/w good effort no accessory muscles. no focla neuro deficits noted PG Care Time/CCT Total # of Minutes Spent Total Time Spent with Patient: Total time spent is greater than 50% in coordination of care (as documented) at patient's floor/unit and/or counseling patient: Coding Level of Care Code 95608 Subseq Hosp Care Lvl 2 Diagnoses Hypoxia R09.02 Neck pain M54.2 Somatic dysfunction of cervical region M99.01 DVT prophylaxis Z29.9
== END 2019-10-18 11:28 | disposition home or self-care (01) | DRG 494 ==
LOC: ASU 10:41 → 3W 10:41 → OBSVTOIN 17:35

== ENCOUNTER 2019-10-27 12:21 | Inpatient (IN) ==
[2019-10-27] MEDS ORDERED: VANCOMYCIN HCL 2,000 MG in SODIUM CHLORIDE 0.9% 500 ML IV STA (12:57)
[2019-10-27] MEDS ORDERED: VANCOMYCIN CONSULT ACTIVE PRN ×2 (12:57→21:33)
--- NOTE | 2019-10-27 13:02 | Emergency Department Note ---
History of Present Illness General Chief complaint: Knee Injury/Pain Stated complaint: knee pain Time Seen by Provider: 10/27/19 12:47 History of Present Illness Maximum Pain Intensity: 6 64-year-old female who presents to the emergency department for evaluation of right knee pain, swelling, redness and chills. The patient reports undergoing surgery on 10/16/2019 for a knee fracture. The surgery was performed by Dr. Berman. The patient has her postop follow-up appointment scheduled this Saturday (3 days from now). The patient reports that she was feeling fine until last evening when she started to notice significant discomfort. The thought that she had some redness to the area as well. When she awoke this morning, the redness and swelling, along with pain was much worse. The patient has not checked her temperature at home. Her called 911, and the patient was transferred to the emergency department via ALS ambulance for further evaluation. The patient was administered IV fentanyl and normal saline en route. She has not noticed any unusual swelling of the leg. She denies any chest pain, shortness of breath, headache, neck pain, urinary symptoms or diarrhea. Her postoperative progression has otherwise been uneventful. Home Medications Home Medications Medication Instructions Recorded Confirmed Type amitriptyline 50 mg PO 10/15/19 10/27/19 History bupropion HCl 150 mg PO [facility] 10/15/19 10/27/19 History diltiazem HCl 180 mg PO [facility] 10/15/19 10/27/19 History duloxetine 30 mg PO [facility] 10/15/19 10/27/19 History ferrous sulfate 325 mg PO [facility] 10/15/19 10/27/19 History lisinopril 5 mg PO [facility] 10/15/19 10/27/19 History omeprazole 20 mg PO [facility] 10/15/19 10/27/19 History ropinirole 0.5 mg PO 10/15/19 10/27/19 History simvastatin 20 mg PO 10/15/19 10/27/19 History acetaminophen 1,000 mg PO Q8 14 Days #84 tab 10/17/19 10/27/19 Rx aspirin 81 mg PO BID 30 Days #60 tab 10/17/19 10/27/19 Rx oxycodone 5 mg PO Q4H PRN #18 tab MDD 6 tabs 10/17/19 10/27/19 Rx Allergies Allergy/AdvReac Type Severity Reaction Status Date / Time No Known Allergies Allergy Verified 10/27/19 16:35 Past Med/Surg History Medical History Basal cell carcinoma SHOULDER AND BACK AREA Depression GERD (gastroesophageal reflux disease) Hypertension Kidney stones HX OF AND LITHOTRIPSY Surgical History Hx laparoscopic cholecystectomy Hx of colonoscopy Hx of hysterectomy Hx of lithotripsy Hx of local excision of skin lesion SHOULDER AND BACK AREA Social History Smoking Status: Never smoker Second Hand Exposure: No; Hx Alcohol Use: No Hx Substance Use: No Preferred Language: Kyrgyz Communication Ability: Effective Heel Seat Flap Stapler Required: No Beliefs That Will Affect Care: None marital status: Current Living Situation: Spouse Current Living Situation Comment: house Feels Safe at Home: Yes Review of Systems 10 system review was performed and was negative except for pertinent positives and negatives as indicated in history of present illness Physical Exam Vital Signs Vital Signs - 24 hr 10/27/19 12:30 10/27/19 13:00 10/27/19 13:10 Temperature 37.8 C H Temperature Source Oral Pulse Rate 99 H Pulse Rate from SpO2 Sensor 98 H 98 H Pulse Strength Normal Respiratory Rate 18 18 Respiratory Effort / Characteristics Non-Labored Spontaneous Respiratory Depth Normal Respiratory Pattern Regular Blood Pressure 163/96 H 158/92 H Blood Pressure Mean 127 125 Pulse Oximetry 94 93 93 Oxygen Delivery Method Room Air Room Air Room Air Oxygen Flow Rate Sepsis Recent Fever Within 48 Hours Yes Sepsis New/Unexplained Change in Mental Status No Sepsis Action Taken by Nursing No Action Required Oxygen Flow Rate - Titration Pulse Oximetry Post Tiitration 10/27/19 13:33 10/27/19 14:06 10/27/19 14:30 Temperature Temperature Source Pulse Rate 104 H 102 H Pulse Rate from SpO2 Sensor 104 H 102 H Pulse Strength Respiratory Rate 13 22 Respiratory Effort / Characteristics Non-Labored Spontaneous Respiratory Depth Respiratory Pattern Blood Pressure 161/90 H 170/90 H Blood Pressure Mean 104 102 Pulse Oximetry 93 96 91 Oxygen Delivery Method Room Air Room Air Room Air Oxygen Flow Rate Sepsis Recent Fever Within 48 Hours Sepsis New/Unexplained Change in Mental Status Sepsis Action Taken by Nursing Oxygen Flow Rate - Titration Pulse Oximetry Post Tiitration 10/27/19 15:00 10/27/19 15:29 10/27/19 15:30 Temperature Temperature Source Pulse Rate 105 H 103 H 104 H Pulse Rate from SpO2 Sensor Pulse Strength Respiratory Rate 19 17 17 Respiratory Effort / Characteristics Respiratory Depth Respiratory Pattern Blood Pressure 172/96 H 164/94 H 172/99 H Blood Pressure Mean 132 113 130 Pulse Oximetry 92 92 93 Oxygen Delivery Method Nasal Cannula Nasal Cannula Nasal Cannula Oxygen Flow Rate 2 2 2 Sepsis Recent Fever Within 48 Hours Sepsis New/Unexplained Change in Mental Status Sepsis Action Taken by Nursing Oxygen Flow Rate - Titration Pulse Oximetry Post Tiitration 10/27/19 15:40 10/27/19 16:00 10/27/19 16:30 Temperature Temperature Source Pulse Rate 103 H 105 H Pulse Rate from SpO2 Sensor Pulse Strength Respiratory Rate 18 15 Respiratory Effort / Characteristics Respiratory Depth Respiratory Pattern Blood Pressure 178/97 H 172/91 H Blood Pressure Mean 141 110 Pulse Oximetry 89 L 93 92 Oxygen Delivery Method Room Air Nasal Cannula Nasal Cannula Nasal Cannula Oxygen Flow Rate 0 2 2 Sepsis Recent Fever Within 48 Hours Sepsis New/Unexplained Change in Mental Status Sepsis Action Taken by Nursing Oxygen Flow Rate - Titration 2 Pulse Oximetry Post Tiitration 92 10/27/19 16:34 10/27/19 17:00 10/27/19 17:30 Temperature 38.9 C H Temperature Source Oral Pulse Rate 106 H 109 H Pulse Rate from SpO2 Sensor Pulse Strength Respiratory Rate 20 19 Respiratory Effort / Characteristics Respiratory Depth Respiratory Pattern Blood Pressure 165/88 H 149/82 H Blood Pressure Mean 106 102 Pulse Oximetry 93 92 Oxygen Delivery Method Nasal Cannula Nasal Cannula Oxygen Flow Rate 2 2 Sepsis Recent Fever Within 48 Hours Sepsis New/Unexplained Change in Mental Status Sepsis Action Taken by Nursing Oxygen Flow Rate - Titration Pulse Oximetry Post Tiitration CONSTITUTIONAL: Healthy and well nourished. Alert and oriented X 3. Patient appears in moderate discomfort. The patient does not appear toxic. HEENT: Normocephalic, atraumatic. Pupils equal, round and reactive. NECK: Full active range of motion without discomfort. LYMPHATICS: No cervical chain adenopathy. RESPIRATORY: Clear to auscultation bilaterally with no wheezing, crackles, rhonchi or stridor. CARDIOVASCULAR: Regular rate and rhythm with no murmurs, rubs or gallops. GASTROINTESTINAL: Bowel sounds present in all quadrants. Abdomen is soft and nontender to palpation. MUSCULOSKELETAL: Examination of the right lateral knee shows intact kale with notable peripheral erythema about the surgical incision site. The patient does have some bloody drainage from the distal incision. The patient has a mild joint effusion. Attempted range of motion of the knee was difficult secondary to patient discomfort. Pedal pulses are intact. Negative logroll of the hip. INTEGUMENTARY: No rash or other significant dermatologic conditions noted. HEMATOLOGIC: No ecchymosis or petechiae. PSYCHIATRIC: Positive affect. NEUROLOGIC: No focal neurologic deficits noted. Course Course Patient history and physical exam were performed. Nurse's notes were reviewed. Review of vital signs shows an oral temperature of 37.8 C. The patient is not tachycardic or hypotensive. The patient does appear in moderate discomfort. I also reviewed prior documentation from the patient's surgery on 10/16/2019. The patient underwent ORIF for a right lateral tibial plateau fracture; this was performed by Dr. Berman with [facility]. It is also noted that [facility] were also consulted for hypertension. IV access was established, and labs were drawn, including blood cultures x2. Because of concern for possible sepsis, the patient was also initially hydrated with 2 L of normal saline until further lab work could be completed. The patient was administered IV morphine and Zofran for better pain control. After blood cultures were drawn, the patient was administered IV vancomycin. Review of labs shows a notable leukocytosis with left shift and bandemia. CMP shows an elevated glucose of 130. Magnesium is 1.7. CRP and sed rate were both markedly elevated. Lactate was normal, however procalcitonin is significantly elevated at 7.73. A portable chest x-ray was normal. ECG shows a possible junctional rhythm of 100 bpm. No previous ECGs were available for comparison. The patient was placed on monitor technician given concern for sepsis. At this point, I had already discussed the case with Dr. Garcia, ED attending physician, as well as our clinical pharmacist regarding treatment options and concern for sepsis. The patient was also seen and examined by Dr. Garcia. Decision was made to also add Zosyn antibiotics for broad antibiotic coverage. The case was also discussed with Samuel Roberts PA-C who also discussed the case with Dr. Shine both of which were in surgery at the time of consultation. Dr. esquivel but did request CT imaging of the knee to look for any collections of fluid that would be consistent with abscess. The patient did require additional IV morphine for persistent pain. Noncontrast CT of the knee does not show any drainable fluid collections. Expected postoperative findings are also noted with a moderate joint effusion. I was then asked by orthopedics to consult the [facility] hospitalist service for evaluation and admission, consulting their services for the patient's orthopedic issue. The patient was seen by Dr. Waggoner who graciously accepted and admitted the patient. Please see the hospitalist and orthopedic service notes for further treatment and final disposition plan. Administered Medications Discontinued Medications Acetaminophen (Acetaminophen 1000 Mg/100 Ml Iv) 1,000 mg IV NOW STA Stop: 10/27/19 16:35 Last Admin: 10/27/19 16:51 Dose: 1,000 mg Documented by: [id number] Vancomycin HCl 2,000 mg/ (Sodium Chloride) 540 mls @ 200 mls/hr IV NOW STA Stop: 10/27/19 15:38 Last Infusion: 10/27/19 16:20 Dose: 0 mls/hr Documented by: [id number] Admin: 10/27/19 13:35 Dose: 200 mls/hr Documented by: [id number] Piperacillin Sod/Tazobactam Sod (Zosyn) 4.5 gm in 120 mls @ 240 mls/hr IV NOW ONE Stop: 10/27/19 16:33 Last Infusion: 10/27/19 17:21 Dose: 0 mls/hr Documented by: [id number] Admin: 10/27/19 16:51 Dose: 240 mls/hr Documented by: [id number] Cefepime HCl 2,000 mg/ Syringe 20 mls @ 5.5 mls/min IV NOW STA; Protocol Stop: 10/27/19 16:07 Last Admin: 10/27/19 16:23 Dose: Not Given Documented by: [id number] Metronidazole (Flagyl) 500 mg in 100 mls @ 100 mls/hr IV NOW STA Stop: 10/27/19 17:03 Last Admin: 10/27/19 16:23 Dose: Not Given Documented by: [id number] Miscellaneous Information (Vancomycin Consult Active) 1 ea N/A UD PRN PRN Reason: Consult Stop: 11/26/19 12:56 Last Admin: 10/27/19 16:21 Dose: 1 ea Documented by: [id number] Miscellaneous Information (Piperacill/Tazobac Consult Active) 1 ea N/A UD PRN PRN Reason: Consult Stop: 11/26/19 16:03 Last Admin: 10/27/19 16:21 Dose: 1 ea Documented by: [id number] Morphine Sulfate (Morphine Sulfate 4 Mg/Ml 1 Ml Carp\Vial) 4 mg IV NOW STA Stop: 10/27/19 13:45 Last Admin: 10/27/19 13:54 Dose: 4 mg Documented by: [id number] Morphine Sulfate (Morphine Sulfate 4 Mg/Ml 1 Ml Carp\Vial) 4 mg IV NOW STA Stop: 10/27/19 16:23 Last Admin: 10/27/19 16:27 Dose: 4 mg Documented by: [id number] Critical Care Time Critical Care Time: Yes Total Critical Care Time: 45 I have personally spent approximately 45 minutes of critical care time in the direct management of this patient. This includes bedside care, interpretation of diagnostic studies, and testing, discussion with consultants, patient, and family members, and other required patient management activities. This 45 minutes is in excess of all separately billable procedures. Patient also has concerning laboratory findings for possible sepsis. I did provide close monitoring of the patient while in the emergency department with no hemodynamic compromise. Patient was provided broad antibiotic coverage urgency department. Medical Decision Making Medical Records Attestation: I reviewed the patient's medical records. Home Medications Current Medication List: was personally reviewed by me Laboratory Data Attestation: I reviewed the patient's lab results. Result diagrams: 10/27/19 11:16 10/27/19 11:16 Lab Results 10/27/19 10/27/19 10/27/19 Range/Units 11:16 11:16 11:16 WBC 17.07 H (4.8-10.8) K/uL RBC 4.28 (4.2-5.4) M/uL Hgb 13.0 (12.0-16.0) g/dL Hct 39.3 (37-47) % MCV 91.8 (80-100) fL MCH 30.4 (25-34) pg MCHC 33.1 (32-36) g/dL RDW Std Deviation 42.5 (36.4-46.3) fL RDW Coeff of Florina 12.7 (11.5-14.5) % Plt Count 486 H (130-400) K/uL MPV 9.6 (7.4-10.4) fL Immature Gran % (Auto) 0.3 % Neut % (Auto) 91.6 % Lymph % (Auto) 4.0 % [place] % (Auto) 4.0 % Eos % (Auto) 0.0 % Baso % (Auto) 0.1 % Neut # (Auto) 15.63 H (1.4-6.5) K/uL Lymph # (Auto) 0.69 L (1.2-3.4) K/uL [place] # (Auto) 0.68 H (0.11-0.59) K/uL Eos # (Auto) 0.00 (0-0.5) K/uL Baso # (Auto) 0.02 (0-0.2) K/uL Immature Gran # (Auto) 0.05 H (0.00-0.02) K/uL ESR (0-21) mm/hr PT 11.3 (9.0-12.0) Seconds INR 1.1 (0.9-1.1) APTT 29.6 (21.0-31.0) Seconds PTT Ratio 1.1 Sodium 136 (136-145) mmol/L Potassium 3.5 (3.5-5.1) mmol/L Chloride 100 (98-107) mmol/L Carbon Dioxide 26 (21-32) mmol/L Anion Gap 10.0 (3-11) BUN 12 (7-18) mg/dl Creatinine 0.99 (0.6-1.2) mg/dl Est Cr Clr Drug Dosing Not Reportable Est GFR ( Amer) 69.3 Est GFR (Non-Af Amer) 59.8 BUN/Creatinine Ratio 11.8 (10-20) Glucose 130 H (70-99) mg/dl Lactate (0.4-2.0) mmol/L Calcium 9.6 (8.5-10.1) mg/dl Magnesium 1.7 L (1.8-2.4) mg/dl Total Bilirubin 0.7 (0.2-1) mg/dl AST 12 L (15-37) U/L ALT 21 (12-78) U/L Alkaline Phosphatase 77 (45-117) U/L C-Reactive Protein (0-0.29) mg/dl Total Protein 7.6 (6.4-8.2) gm/dl Albumin 3.4 (3.4-5.0) gm/dl Globulin 4.2 H (2.5-4.0) gm/dl Albumin/Globulin Ratio 0.8 L (0.9-2) Procalcitonin (0-0.5) ng/ml 10/27/19 10/27/19 10/27/19 Range/Units 11:16 11:16 11:16 WBC (4.8-10.8) K/uL RBC (4.2-5.4) M/uL Hgb (12.0-16.0) g/dL Hct (37-47) % MCV (80-100) fL MCH (25-34) pg MCHC (32-36) g/dL RDW Std Deviation (36.4-46.3) fL RDW Coeff of Florina (11.5-14.5) % Plt Count (130-400) K/uL MPV (7.4-10.4) fL Immature Gran % (Auto) % Neut % (Auto) % Lymph % (Auto) % [place] % (Auto) % Eos % (Auto) % Baso % (Auto) % Neut # (Auto) (1.4-6.5) K/uL Lymph # (Auto) (1.2-3.4) K/uL [place] # (Auto) (0.11-0.59) K/uL Eos # (Auto) (0-0.5) K/uL Baso # (Auto) (0-0.2) K/uL Immature Gran # (Auto) (0.00-0.02) K/uL ESR 37 H (0-21) mm/hr PT (9.0-12.0) Seconds INR (0.9-1.1) APTT (21.0-31.0) Seconds PTT Ratio Sodium (136-145) mmol/L Potassium (3.5-5.1) mmol/L Chloride (98-107) mmol/L Carbon Dioxide (21-32) mmol/L Anion Gap (3-11) BUN (7-18) mg/dl Creatinine (0.6-1.2) mg/dl Est Cr Clr Drug Dosing Est GFR ( Amer) Est GFR (Non-Af Amer) BUN/Creatinine Ratio (10-20) Glucose (70-99) mg/dl Lactate (0.4-2.0) mmol/L Calcium (8.5-10.1) mg/dl Magnesium (1.8-2.4) mg/dl Total Bilirubin (0.2-1) mg/dl AST (15-37) U/L ALT (12-78) U/L Alkaline Phosphatase (45-117) U/L C-Reactive Protein 4.31 H (0-0.29) mg/dl Total Protein (6.4-8.2) gm/dl Albumin (3.4-5.0) gm/dl Globulin (2.5-4.0) gm/dl Albumin/Globulin Ratio (0.9-2) Procalcitonin 7.73 H (0-0.5) ng/ml 10/27/19 Range/Units 13:18 WBC (4.8-10.8) K/uL RBC (4.2-5.4) M/uL Hgb (12.0-16.0) g/dL Hct (37-47) % MCV (80-100) fL MCH (25-34) pg MCHC (32-36) g/dL RDW Std Deviation (36.4-46.3) fL RDW Coeff of Florina (11.5-14.5) % Plt Count (130-400) K/uL MPV (7.4-10.4) fL Immature Gran % (Auto) % Neut % (Auto) % Lymph % (Auto) % [place] % (Auto) % Eos % (Auto) % Baso % (Auto) % Neut # (Auto) (1.4-6.5) K/uL Lymph # (Auto) (1.2-3.4) K/uL [place] # (Auto) (0.11-0.59) K/uL Eos # (Auto) (0-0.5) K/uL Baso # (Auto) (0-0.2) K/uL Immature Gran # (Auto) (0.00-0.02) K/uL ESR (0-21) mm/hr PT (9.0-12.0) Seconds INR (0.9-1.1) APTT (21.0-31.0) Seconds PTT Ratio Sodium (136-145) mmol/L Potassium (3.5-5.1) mmol/L Chloride (98-107) mmol/L Carbon Dioxide (21-32) mmol/L Anion Gap (3-11) BUN (7-18) mg/dl Creatinine (0.6-1.2) mg/dl Est Cr Clr Drug Dosing Est GFR ( Amer) Est GFR (Non-Af Amer) BUN/Creatinine Ratio (10-20) Glucose (70-99) mg/dl Lactate 2.0 (0.4-2.0) mmol/L Calcium (8.5-10.1) mg/dl Magnesium (1.8-2.4) mg/dl Total Bilirubin (0.2-1) mg/dl AST (15-37) U/L ALT (12-78) U/L Alkaline Phosphatase (45-117) U/L C-Reactive Protein (0-0.29) mg/dl Total Protein (6.4-8.2) gm/dl Albumin (3.4-5.0) gm/dl Globulin (2.5-4.0) gm/dl Albumin/Globulin Ratio (0.9-2) Procalcitonin (0-0.5) ng/ml Imaging Data Attestation: I personally reviewed and interpreted this imaging study as follows: My Impression: My interpretation of a portable chest x-ray does not show any consolidations, pneumothorax or cardiac prominence. My interpretation of a noncontrast CT of the right knee does not show any obvious fluid collections. Presurgical findings are noted with a moderate joint effusion. Radiologist reports were also reviewed. Radiologist's Impression: CT knee RT wo con HISTORY: 64 years-old Female Postop infection patient presents with reported postoperative infection. COMPARISON: Fluoroscopic images of the right knee 10/16/2019 TECHNIQUE: Multiple axial CT images of the right knee were obtained without the use of IV contrast. A dose lowering technique was used consistent with the principals of ALARA. FINDINGS: There is a moderate sized joint effusion. Moderate anterolateral subcutaneous edema is noted with skin thickening. No drainable fluid collection or opaque foreign body identified. Lateral skin kale. Arterial calcifications. Lateral plate and screw fusion is noted within the proximal tibia. The hardware appears intact. Or acute mildly comminuted fractures involving the posterior aspects of the medial and lateral tibial plateaus fracture displacement measuring up to approximately 4 mm. 5 x 2 mm intra-articular loose body is noted anterior to the lateral femoral condyle on image 138 series 3. Mild patellofemoral osteoarthritis. Imaged distal femur and patella appear intact. No osseous erosions. IMPRESSION: 1. Acute comminuted fractures involve the posterior aspects of the medial and lateral tibial plateaus with slight displacement of the lateral tibial plateau fracture. 5 x 2 mm intra-articular loose body is noted adjacent to lateral femoral condyle. 2. Lateral plate and screw fusion of the proximal tibia with intact hardware. 3. Lateral skin kale are noted in addition to lateral skin thickening with anterolateral subcutaneous edema. Findings may be on a postsurgical basis or may reflect cellulitis. No drainable fluid collection or opaque foreign body. 4. Moderate joint effusion. ECG Data Attestation: I personally reviewed and interpreted this ECG as follows: Indication: + other (Postoperative infection) Rate (beats per minute): 100 Rhythm: + junctional ECG Intervals/blocks: + Normal QRS ECG [place]: + Normal Comparison ECG Date: no prior available Blood Pressure Blood Pressure Findings: Elevated blood pressure MDM Narrative Cardiac monitoring: An order was placed for continuous cardiac monitoring. The monitor shows a rate of 100 bpm with a possible accelerated junctional rhythm. groundwater monitoring technician history was reviewed throughout the evaluation, and no dysrhythmias were noted. Patient presents the emergency department with history and findings concerning for postoperative infection. Given that the patient underwent ORIF of a lateral tibial plateau fracture, the joint is certainly a concern. CT imaging does not show any collections of fluid consistent with abscess, therefore I do not suspect that intraoperative joint irrigation is warranted at this time. I deferred diagnostic arthrocentesis to orthopedics. Laboratory studies are concerning for sepsis as well, possibly septic arthritis. Although the patient remained hemodynamically stable while in the emergency department, she did have an increasing oral temperature. Her procalcitonin is also significantly elevated with a normal lactate level. Broad coverage antibiotic treatment was initiated. Impression & Plan Deep postoperative wound infection, Closed fracture of right tibial plateau Discharge Plan Visit Data Chief Complaint: Knee Injury/Pain Stated Complaint: knee pain ED Provider: Jayson Garcia ED Midlevel Provider: John Bourgeois Discharge Problem: Deep postoperative wound infection, Closed fracture of right tibial plateau Patient Disposition: Admitted As Inpatient Discharge Instructions Interventions: ED Discharge Assessment Last Done: 10/27/19 20:29 Addendum (Blank) Addendum October 27, 2019 22:30 HPI: [id number] who is s/p ORIF of right tibial plateau fx 10/15 presents with fevers and new redness and warmth at incision site. PE: Febrile 38.9, HR 100s otherwise VSS, ill appearing, in NAD. NC/AT Tachcyardic rate, regular rhythm , CTAB Abd soft NT/ND Ext: RLE incision site with surrounding erythema, warmth, tenderness. No crepitus. AP: Suspected sepsis in setting of recent ORIF with likely cellulitis as source. WBC 17, procal 7, ESR and CRP elevated. IVF, Broad spectrum abx. PA d/w orthopedics. Admit. I reviewed the patient's past medical history, medications, and visit nursing notes. I discussed the case with the physician surgical assistant certified, examined the patient, and agree with the findings and plan as documented in PAC [place]'s note.
[2019-10-27 13:21] LABS: Basophils # (auto) 0.02 K/uL (0-0.2); Basophils % (auto) 0.1 %; Hematocrit (blood only) 39.3 % (37-47); Immature Granulocytes # (auto) 0.05 K/uL (0.00-0.02); Immature Granulocytes % (auto) 0.3 %; Lymphocytes # (auto) 0.69 K/uL (1.2-3.4); Mean Corpuscular Hemoglobin 30.4 pg (25-34); Mean Corpuscular Hgb Conc 33.1 g/dL (32-36); Mean Corpuscular Volume 91.8 fL (80-100); Mean Platelet Volume 9.6 fL (7.4-10.4); Monocytes # (auto) 0.68 K/uL (0.11-0.59); Neutrophils # (auto) 15.63 K/uL (1.4-6.5); Neutrophils % (auto) 91.6 %; Platelet Count 486 K/uL (130-400); RDW Coefficient of Variation 12.7 % (11.5-14.5); RDW Standard Deviation 42.5 fL (36.4-46.3); Red Blood Count 4.28 M/uL (4.2-5.4); White Blood Count 17.07 K/uL (4.8-10.8)
[2019-10-27 13:26] LABS: INR 1.1 (0.9-1.1); Partial Thromboplastin Ratio 1.1; Partial Thromboplastin Time 29.6 Seconds (21.0-31.0); Prothrombin Time 11.3 Seconds (9.0-12.0)
[2019-10-27 13:29] LABS: Alanine Aminotransferase 21 U/L (12-78); Albumin Level 3.4 gm/dl (3.4-5.0); Aspartate Aminotransferase 12 U/L (15-37); BUN Creatinine Ratio 11.8 (10-20); Blood Urea Nitrogen 12 mg/dl (7-18); Calcium 9.6 mg/dl (8.5-10.1); Carbon Dioxide 26 mmol/L (21-32); Chloride 100 mmol/L (98-107); Est GFR (African American) 69.3; Est GFR (Non-African American) 59.8; Glucose 130 mg/dl (70-99); Magnesium 1.7 mg/dl (1.8-2.4); Potassium 3.5 mmol/L (3.5-5.1); Sodium 136 mmol/L (136-145)
[2019-10-27 13:31] LABS: Albumin Globulin Ratio 0.8 (0.9-2); Alkaline Phosphatase 77 U/L (45-117); Bilirubin,Total 0.7 mg/dl (0.2-1); Globulin 4.2 gm/dl (2.5-4.0); Total Protein 7.6 gm/dl (6.4-8.2)
[2019-10-27] MEDS ORDERED: MoRPHine SULFATE 4 MG/ML 1 ML CARP\\VIAL IV STA ×2 (13:44→16:22)
--- NOTE | 2019-10-27 13:50 | XRay Report ---
SINGLE VIEW CHEST CLINICAL HISTORY: Sepsis. FINDINGS: An AP, portable, upright chest radiograph is obtained. No prior studies are available for c omparison at the time of dictation. The examination is degraded by portable technique, apical lordoti c positioning, and patient rotation. The cardiomediastinal silhouette is unremarkable. The lungs and pleural spaces are clear. No pneumothorax is seen. The skeletal structures are osteopenic. The bony thorax is grossly intact. IMPRESSION: No active disease in the chest. ACT 112: Negative or not required by law. Electronically signed by: Giancarlo Mckeon M.D. 10/27/2019 1:49 PM
--- NOTE | 2019-10-27 14:31 | CT Scan Report ---
CT knee RT wo con HISTORY: 64 years-old Female Postop infection patient presents with reported postoperative infection . COMPARISON: Fluoroscopic images of the right knee 10/16/2019 TECHNIQUE: Multiple axial CT images of the right knee were obtained without the use of IV contrast. A dose lowering technique was used consistent with the principals of RORY. FINDINGS: There is a moderate sized joint effusion. Moderate anterolateral subcutaneous edema is noted with ski n thickening. No drainable fluid collection or opaque foreign body identified. Lateral skin kale. Arterial calcifications. Lateral plate and screw fusion is noted within the proximal tibia. The hardw are appears intact. Or acute mildly comminuted fractures involving the posterior aspects of the media l and lateral tibial plateaus fracture displacement measuring up to approximately 4 mm. 5 x 2 mm intr a-articular loose body is noted anterior to the lateral femoral condyle on image 138 series 3. Mild p atellofemoral osteoarthritis. Imaged distal femur and patella appear intact. No osseous erosions. IMPRESSION: 1. Acute comminuted fractures involve the posterior aspects of the medial and lateral tibial plateaus with slight displacement of the lateral tibial plateau fracture. 5 x 2 mm intra-articular loose body is noted adjacent to lateral femoral condyle. 2. Lateral plate and screw fusion of the proximal tibia with intact hardware. 3. Lateral skin kale are noted in addition to lateral skin thickening with anterolateral subcutane ous edema. Findings may be on a postsurgical basis or may reflect cellulitis. No drainable fluid ramon ection or opaque foreign body. 4. Moderate joint effusion. ACT 112: Negative or not required by law. The above report was generated using voice recognition software. It may contain grammatical, syntax o r spelling errors. Electronically signed by: Cheo Palacios M.D. 10/27/2019 2:30 PM
[2019-10-27] MEDS ORDERED: metroNIDAZOLE 500 MG/100 ML BAG IV STA (16:04)
[2019-10-27] MEDS ORDERED: PIPERACILL/TAZOBAC CONSULT ACTIVE PRN (16:04)
[2019-10-27] MEDS ORDERED: CEFEPIME 2,000 MG in SYRINGE 7.5 ML IV STA (16:04)
[2019-10-27] MEDS ORDERED: PIPERACILLIN/TAZOBACTAM 4.5 GM/120 ML BAG IV ONE (16:04)
[2019-10-27] MEDS ORDERED: ACETAMINOPHEN 1000 MG/100 ML IV IV STA (16:34)
--- NOTE | 2019-10-27 18:20 | History & Physical Report ---
Date of Service October 27, 2019 Assessment & Plan (1) Septic arthritis: sepsis present on admission -almost certainly gram positive, given recent surgery and current severity of illness -vanco -ortho consult -serial exams -pain control (2) Tibial plateau fracture, right: concern on proximity of hardware to area of infection -serial exams, ortho input, vanco (3) Hypertension: BP currently high but given septic appearance - safer to hold ACEi for now, follow. not in a dangerous range w BP (4) GERD (gastroesophageal reflux disease): continue home PPI (5) Depression: continue home meds (6) DVT prophylaxis: lovenox (7) Discharge planning issues: admit med/surg [facility] hospitalists, [facility] consult PT/OT eval and treat depending on ultimate status of knee and hardware, may have fairly prolonged hospitalization History of Present Illness Chief Complaint: knee pain Primary Care Provider: Eliane Heller very pleasant 64f known to me from when she was here a little over a week ago for tibial plateau fracture and repair. was at home doing well - yesterday morning feeling fine- then as the day went on she noted fairly abruptly onset of R knee pain as well as fevers, chills, and sweats. she bundled up with blankets and tried to sleep but was unable to really ever get comfortable - notes that the pain in her knee - and especially the back of her knee - was unbearable. ongoing f/c/s. eventually presented to ER - found to have an overall septic appearance, we were asked to see for ongoing care. no other complaints - no respiratory, GI, , etc. ROS otherwise negative except for as above no significant medical fam hx, but of note her dtr is an balloon tester in [facility]. Allergies Allergy/AdvReac Type Severity Reaction Status Date / Time No Known Allergies Allergy Verified 10/27/19 16:35 Home Medications Home Medications Medication Instructions Recorded Confirmed Type amitriptyline 50 mg PO HS 10/15/19 10/27/19 History bupropion HCl 150 mg PO QAM 10/15/19 10/27/19 History diltiazem HCl 180 mg PO QAM 10/15/19 10/27/19 History duloxetine 30 mg PO QAM 10/15/19 10/27/19 History ferrous sulfate 325 mg PO QAM 10/15/19 10/27/19 History lisinopril 5 mg PO QAM 10/15/19 10/27/19 History omeprazole 20 mg PO QAM 10/15/19 10/27/19 History ropinirole 0.5 mg PO HS 10/15/19 10/27/19 History simvastatin 20 mg PO HS 10/15/19 10/27/19 History acetaminophen 1,000 mg PO Q8 14 Days #84 tab 10/17/19 10/27/19 Rx aspirin 81 mg PO BID 30 Days #60 tab 10/17/19 10/27/19 Rx oxycodone 5 mg PO Q4H PRN #18 tab MDD 6 tabs 10/17/19 10/27/19 Rx Past Med/Surg History Medical History (Updated 10/27/19 @ 18:26 by Carlos Saez DO) Basal cell carcinoma SHOULDER AND BACK AREA Depression GERD (gastroesophageal reflux disease) Hypertension Kidney stones HX OF AND LITHOTRIPSY Surgical History Hx laparoscopic cholecystectomy Hx of colonoscopy Hx of hysterectomy Hx of lithotripsy Hx of local excision of skin lesion SHOULDER AND BACK AREA Social History Smoking Status: Never smoker Second Hand Exposure: No; Hx Alcohol Use: No Hx Substance Use: No Preferred Language: Spanish Communication Ability: Effective Cleaning Custodian Required: No Beliefs That Will Affect Care: None marital status: Current Living Situation: Spouse Feels Safe at Home: Yes Review of Systems Review of Systems: All systems reviewed & are unremarkable except as noted in HPI & below Physical Exam Physical Exam: gen aaox3 pleasant but fatigued appearing, does appear in discomfort from knee as well. no respiratory distress. appears ill but not fully toxic. heent nc at mmm neck full ROM cardio reg no r/m/g lungs cta b/l no rrw good effort no accessory muscles no conversational dyspnea no distress abd soft nd nt no masses ext no cyanosis, clubbing. LLE no edema no joint tenderness. RLE incision from prior surgery - still with kale. dark red appearance around incision - but not really very tender, no exudate. no fluctuance under incision. R knee with easily palpable moderate or maybe large effusion, fairly warm, surprisingly not red - but exquisitely tender on palpation of joint space at any angle - medial, lateral - and also palpably swollen and exquisitely tender posterior neuro - cn 2-12 grossly intact gross motor and sensory intact MSK - R knee described in extremities. L knee totally normal. no other notable bony abnormalities/joint effusions/etc mental - good recent and remote recall normal mood and affect, good judgement and insight Results & Data Results & Data ([facility]) Vital Signs (Past 12 Hours) Vital Signs Temp Pulse Resp BP Pulse Ox 10/27/19 17:30 109 H 19 149/82 H 92 10/27/19 17:00 106 H 20 165/88 H 93 10/27/19 16:34 102.0 F H 10/27/19 16:30 105 H 15 172/91 H 92 10/27/19 16:00 103 H 18 178/97 H 93 10/27/19 15:40 89 L 10/27/19 15:30 104 H 17 172/99 H 93 10/27/19 15:29 103 H 17 164/94 H 92 10/27/19 15:00 105 H 19 172/96 H 92 10/27/19 14:30 102 H 22 170/90 H 91 10/27/19 14:06 104 H 13 161/90 H 96 10/27/19 13:33 93 10/27/19 13:10 93 10/27/19 13:00 18 158/92 H 93 10/27/19 12:30 100.0 F H 99 H 18 163/96 H 94 Code Status & VTE Plan VTE Prophylaxis Plan VTE Prophylaxis will be ordered: Yes PG Care Time/CCT Total # of Minutes Spent Total Time Spent with Patient: Total time spent is greater than 50% in coordination of care (as documented) at patient's floor/unit and/or counseling patient: Coding Level of Care Code 09314 Initial Inpt Care Lvl 3 Diagnoses Septic arthritis M00.9 Tibial plateau fracture, right S82.141A Hypertension I10 GERD (gastroesophageal reflux disease) K21.9 Depression F32.9 DVT prophylaxis Z29.9 Discharge planning issues Z02.9
--- NOTE | 2019-10-27 19:12 | Orthopedic Consultation ---
Date of Consultation October 27, 2019 Assessment & Plan (1) Cellulitis of leg, right: Dr. Ace has examined the patient as well. Plan for IV antibiotics for the next 24 hours. It was felt that the erythema and overt warmth had not involve the whole of the knee at this point in time so no aspiration will be performed. Plan to keep the patient n.p.o. after midnight. We will reexamine her in the morning. History of Present Illness Reason for Consultation: Cellulitis right lower extremity, rule out wound infection. History of Present Illness Patient is a 64-year-old white female known to our practice who was status post ORIF of a right tibial plateau fracture by on 10/16/2019. Patient had a normal postoperative recovery time in the hospital and was discharged home. She was apparently doing well until yesterday afternoon. She was feeling fairly well that morning however as the day progressed, she began to have increased right knee pain near the incision line which continue to worsen. She developed fevers and chills. She denies nausea or vomiting, chest pain, lightheadedness, shortness of breath. She states that her condition felt like it was worsening and she decided to come into the emergency room to be seen. She was seen by the staff and labs and CT scan of the right knee was performed. It was felt that she was going to need IV antibiotics and there was a question of whether she was going to need an irrigation and debridement. She was admitted by Dr. Saez. We are seeing her for her right knee cellulitis. Currently the patient is lying in bed and does appear ill. She states that she is having pain over much of her right lower extremity but mainly around the incision site and her knee. She also states that she feels the pain is radiating up her leg to her groin and somewhat down her lower extremity. She states she is having quite a bit of pain in the back of her knee. No other complaints at this time. Allergies Allergy/AdvReac Type Severity Reaction Status Date / Time No Known Allergies Allergy Verified 10/27/19 16:35 Home Medications Home Medications Medication Instructions Recorded Confirmed Type amitriptyline 50 mg PO HS 10/15/19 10/27/19 History bupropion HCl 150 mg PO QAM 10/15/19 10/27/19 History diltiazem HCl 180 mg PO QAM 10/15/19 10/27/19 History duloxetine 30 mg PO QAM 10/15/19 10/27/19 History ferrous sulfate 325 mg PO QAM 10/15/19 10/27/19 History lisinopril 5 mg PO QAM 10/15/19 10/27/19 History omeprazole 20 mg PO QAM 10/15/19 10/27/19 History ropinirole 0.5 mg PO HS 10/15/19 10/27/19 History simvastatin 20 mg PO HS 10/15/19 10/27/19 History acetaminophen 1,000 mg PO Q8 14 Days #84 tab 10/17/19 10/27/19 Rx aspirin 81 mg PO BID 30 Days #60 tab 10/17/19 10/27/19 Rx oxycodone 5 mg PO Q4H PRN #18 tab MDD 6 tabs 10/17/19 10/27/19 Rx Patient History Medical History Basal cell carcinoma SHOULDER AND BACK AREA Depression GERD (gastroesophageal reflux disease) Hypertension Kidney stones HX OF AND LITHOTRIPSY Surgical History Hx laparoscopic cholecystectomy Hx of colonoscopy Hx of hysterectomy Hx of lithotripsy Hx of local excision of skin lesion SHOULDER AND BACK AREA Social History Smoking Status: Never smoker Second Hand Exposure: No; Hx Alcohol Use: No Hx Substance Use: No Preferred Language: Indonesian Communication Ability: Effective Cloth Doffer Required: No Beliefs That Will Affect Care: None marital status: Current Living Situation: Spouse Current Living Situation Comment: house Feels Safe at Home: Yes Review of Systems Review of Systems: All systems reviewed & are unremarkable except as noted in HPI & below Physical Exam Physical Exam: On examination of her right lower extremity, her whole extremity does feel warm to the touch. She does have erythema and mild swelling around the incision itself but no purulent drainage on the lateral aspect of where she had her tibial plateau fixed. Her knee is somewhat swollen but apparently that is not overtly changed according to the patient. The knee is tender on palpation and I am able to do some gentle range of motion of the knee. She does have pain in the knee itself however she complains of pain in the back of the knee especially when applying pressure with my hand to take the knee through range of motion. She does have some mild discomfort with hip range of motion of which she states is more lateral. No overt tenderness on palpation of the hip at this time. She is moving her toes well and is able to move her ankle but she complains of increased pain in the back of her knee with me dorsiflexing her ankle. She has no overt edema of the lower extremity at this time and distal pulses are equal bilaterally. No complaints of discomfort of the left lower extremity or bilateral upper extremities. No gross motor or sensory loss seen at this time. Results & Data ([facility]) Vital Signs (Past 12 Hours) Vital Signs Temp Pulse Resp BP Pulse Ox 10/27/19 19:09 37.4 C 10/27/19 19:00 98 H 16 152/85 H 93 10/27/19 18:30 105 H 17 152/83 H 93 10/27/19 17:30 109 H 19 149/82 H 92 10/27/19 17:00 106 H 20 165/88 H 10/27/19 16:34 38.9 C H 10/27/19 16:30 105 H 15 172/91 H 92 10/27/19 16:00 103 H 18 178/97 H 93 10/27/19 15:40 89 L 10/27/19 15:30 104 H 17 172/99 H 93 10/27/19 15:29 103 H 17 164/94 H 92 10/27/19 15:00 105 H 19 172/96 H 92 10/27/19 14:30 102 H 22 170/90 H 91 10/27/19 14:06 104 H 13 161/90 H 96 10/27/19 13:33 93 10/27/19 13:10 93 10/27/19 13:00 18 158/92 H 93 10/27/19 12:30 37.8 C H 99 H 18 163/96 H 94
[2019-10-27] MEDS ORDERED: ONDANSETRON INJ 2 MG/ML 2 ML VIAL IV PRN (21:05)
[2019-10-27] MEDS ORDERED: KETOROLAC TROMETHAMINE 15 MG/ML VIAL IV PRN (21:05)
--- NOTE | 2019-10-27 21:40 | Pharmacy Report ---
Pharmacy Abx Dose Short Note - Date of Service October 27, 2019 - Assessment & Plan Assessment 64 year old F receiving vancomycin for treatment of septic R knee Day # 1 of antimicrobial therapy. Plan Vancomycin * Loading dose of vancomycin 2000 mg IV x 1 (21 mg/kg) given in the ER * population pharmacokinetics suggest a half-life of 9.9 hours with an elimination constant of 0.07 hr-1 * start vancomycin 1500 mg IV q12 hours (15 mg/kg) * goal level for septic arthritis is 15-20 mcg/mL * check trough prior to 0200 dose on 10/29/19 Pharmacy will continue to follow and will adjust dose/frequency as necessary. Thank you.
[2019-10-27] MEDS: MoRPHine SULFATE 4 MG/ML 1 ML CARP\\VIAL IV PRN (22:35)
[2019-10-27] MEDS: OXYCODONE HCL IR 5 MG TAB (IMMEDIATE RELEASE) PO PRN (22:36)
[2019-10-27] MEDS: ACETAMINOPHEN 500 MG TAB PO SCH (22:36)
[2019-10-27] MEDS: DOCUSATE SODIUM 100 MG CAP PO SCH (22:37)
[2019-10-27] MEDS: LACTATED RINGER'S 1,000 ML IV SCH (22:38)
[2019-10-27] MEDS: ROPINIROLE HCL 0.25 MG TABLET PO SCH (22:39)
[2019-10-27] MEDS: SIMVASTATIN 20 MG TAB PO SCH (22:39)
[2019-10-27] MEDS: AMITRIPTYLINE HCL 50 MG TAB PO SCH (22:39)
--- NOTE | 2019-10-27 22:51 | Communication Note ---
Date of Service: October 27, [address] [facility] [address] Bob of positive DVT to post tibial and peroneal. It is below the knee. Will change Lovenox dose to DVT therapeutic 1mg/kg q12h SQ. Resident Activity Tracking Resident Involvement: Resident Care Provided Care Provided: Adult Hospital Medicine
[2019-10-27] MEDS: ENOXAPARIN 100 MG/1ML SYR SQ SCH (23:07)
[2019-10-28] MEDS: MoRPHine SULFATE 4 MG/ML 1 ML CARP\\VIAL IV PRN ×3 (01:44→10:44)
[2019-10-28] MEDS: OXYCODONE HCL IR 5 MG TAB (IMMEDIATE RELEASE) PO PRN ×4 (01:44→20:18)
[2019-10-28] MEDS: VANCOMYCIN HCL 1,500 MG in SODIUM CHLORIDE 0.9% 500 ML IV SCH ×2 (01:47→13:32)
--- NOTE | 2019-10-28 05:57 | Electrocardiogram Report ---
Test Reason : Blood Pressure : / mmHG Vent. Rate : 100 BPM Atrial Rate : 078 BPM P-R Int : 172 ms QRS Dur : 078 ms QT Int : 352 ms P-R-T Axes : 000 044 049 degrees QTc Int : 454 ms Poor data quality, interpretation may be adversely affected Sinus rhythm Nonspecific T wave abnormality Abnormal ECG No previous ECGs available Confirmed by Braxton Delgado ([id number]) on 10/28/2019 5:57:27 AM Referred By: REFERRED SELF Confirmed By:Braxton Delgado
[2019-10-28] MEDS: ACETAMINOPHEN 500 MG TAB PO SCH ×3 (06:02→23:25)
[2019-10-28 06:10] LABS: Basophils # (auto) 0.02 K/uL (0-0.2); Basophils % (auto) 0.1 %; Hematocrit (blood only) 35.5 % (37-47); Hemoglobin 11.8 g/dL (12.0-16.0); Immature Granulocytes # (auto) 0.05 K/uL (0.00-0.02); Immature Granulocytes % (auto) 0.3 %; Lymphocytes # (auto) 0.66 K/uL (1.2-3.4); Lymphocytes % (auto) 4.5 %; Mean Corpuscular Hemoglobin 31.5 pg (25-34); Mean Corpuscular Hgb Conc 33.2 g/dL (32-36); Mean Corpuscular Volume 94.7 fL (80-100); Mean Platelet Volume 9.4 fL (7.4-10.4); Monocytes # (auto) 0.51 K/uL (0.11-0.59); Monocytes % (auto) 3.5 %; Neutrophils % (auto) 91.6 %; Platelet Count 404 K/uL (130-400); RDW Coefficient of Variation 13.2 % (11.5-14.5); RDW Standard Deviation 45.5 fL (36.4-46.3); Red Blood Count 3.75 M/uL (4.2-5.4); White Blood Count 14.54 K/uL (4.8-10.8)
[2019-10-28] MEDS: LACTATED RINGER'S 1,000 ML IV SCH ×3 (06:19→22:10)
[2019-10-28 06:46] LABS: Calcium 8.4 mg/dl (8.5-10.1); Creatinine Clr Calc Pharmacy 70.5 ml/min; Est GFR (African American) 72.8; Est GFR (Non-African American) 62.9; Potassium 3.7 mmol/L (3.5-5.1)
--- NOTE | 2019-10-28 07:58 | Ultrasound Report ---
US venous doppler LE RT CLINICAL HISTORY: pain, swelling - ?gates's cyst vs DVT COMPARISON STUDY: No previous studies for comparison. FINDINGS: Grayscale, color-flow, Doppler spectral waveform analysis was performed. No thrombus is visualized within the common femoral, superficial femoral, or popliteal veins. There i s thrombus seen within one of the posterior tibial veins, and both peroneal veins. IMPRESSION: 1. Acute right lower extremity calf DVT involving the posterior tibial and peroneal veins. No evidenc e of above the knee DVT. ACT 112: Negative or not required by law. Electronically signed by: Saqib Devries M.D. 10/28/2019 7:56 AM
--- NOTE | 2019-10-28 08:06 | Hospitalist Progress Note ---
Date of Service October 28, 2019 Assessment & Plan (1) Septic arthritis: Patient is a 64 year old female with PMHx R Tibial Plateau fx s/p ORIF, GERD, HTN, Depression who presented with abrupt onset of R knee pain including fevers and chills. Septic Arthritis -Treated empirically with Cefepime, Flagyl, Vancomycin, Zosyn in the ED -Continued Vancomycin as a majority of Septic joints are gram +, concern for MRSA with recent surgery and instrumentation placement -Blood cultures positive for gram neg bacilli this AM - Start Ceftriaxone 2g QD -Pain control Tylenol, Morphine, Oxycodone -Ortho Consulted -Knee aspirated today -Plan for washout of wound today with possible knee joint washout pending results of knee aspiration Closed Fx R Tibial Plateau S/P ORIF -S/P ORIF on 10/16/19 Right Leg DVT -DVT noted on US at R posterior tibial and peroneal vein -No clot above the knee -Therapeutic Lovenox for treatment Depression -Continue Bupropion -Continue Duloxetine -Continue Amitriptyline GERD -Continue Pantoprazole 40mg qAM HLD -Continue Simvastatin 20mg qHS Dispo: Med/Surg FEN: NPO, LR 125ml/hr DVT: Therapeutic Lovenox Code: Full (2) Deep postoperative wound infection: (3) Closed fracture of right tibial plateau: (4) Cellulitis of leg, right: (5) Depression: (6) GERD (gastroesophageal reflux disease): (7) Hypertension: (8) Right leg DVT: Admission and Anticipated Discharge Date Admission Date: October 27, 2019 Supervising Physician Co-Signing Physician Notes I personally examined the patient and verified all sandhu points of history and exam, discussed case, and agree with decision making with Dr Dejesus. feeling ok post op updated pt and as best i could d/w ortho vitals noted nad heent nc at mmm breathing unlabored no accessory muscles good effort sepsis - gram negative bacteremia, septic knee. continue vanco (since huge majority of septic joints are gram positive) and ceftriaxone (to cover gram neg) until sensitivities on blood cultures complete and OR cultures have had a chance to grow (certainly possible they'll be negative from prior abx, but will definitely want to follow). stable and sepsis improving. distal dvt - anticoagulation. otherwise as above Subjective Patient seen and evaluated at the bedside this morning. Patient noting that she feels better than she did yesterday, though her knee is still painful. Notes she had chills coming into the ED last night, but has felt comfortable since. She feels this morning that the swelling and redness of her R knee has improved, but still has difficulties moving. Review of Systems Constitutional: no fever and no chills Respiratory: no cough, no dyspnea and no pain on inspiration Cardiovascular: no chest pain, no chest pain at rest, no dyspnea on exertion and no palpitations Gastrointestinal: no abdominal pain, no nausea, no vomiting and no constipation Genitourinary: no dysuria Musculoskeletal: + joint pain (R knee ) and + swelling (R knee ) Integumentary: + skin swelling (R knee around kale) Physical Exam Constitutional: well developed and well nourished; no acute distress Respiratory: normal respiratory effort, lungs clear to auscultation Cardiovascular: RRR, no murmur, no edema Gastrointestinal (Abdomen): normal bowel sounds, soft, nontender, no hepatosplenomegaly Musculoskeletal: RLE incision with minimal purulent drainage towards the middle of the incision underlying a staple. Tenderness to palpation primarily on the anterior portion of the knee with greater tenderness of the joint space and posterior aspect. Minimal erythema noted. Results & Data Results & Data ([facility]) Vital Signs (Past 12 Hours) Vital Signs Temp Pulse Resp BP Pulse Ox 10/28/19 07:40 37.2 C 84 16 117/64 92 10/28/19 03:12 36.7 C 88 15 130/71 95 10/27/19 23:29 39.2 C H 111 H 17 144/81 H 92 10/27/19 21:05 37.1 C 103 H 20 158/90 H 97 Resident Activity Tracking Resident Involvement: Resident Care Provided Care Provided: Adult [facility] Medicine
[2019-10-28] MEDS ORDERED: ETHYL CHLORIDE AER PER SPRAY 100 ML CAN EXT ONE (08:16)
[2019-10-28] MEDS: DOCUSATE SODIUM 100 MG CAP PO SCH ×3 (08:25→22:10)
[2019-10-28] MEDS: dilTIAZem ER 180 MG CAPCR PO SCH (08:25)
[2019-10-28] MEDS: FERROUS SULFATE 325 MG TAB PO SCH (08:26)
[2019-10-28] MEDS: PANTOprazole 40 MG TAB PO SCH (08:26)
[2019-10-28] MEDS: BuPROPion XL 150 MG TABCR PO SCH (08:26)
[2019-10-28] MEDS: ENOXAPARIN 100 MG/1ML SYR SQ SCH ×2 (08:27→20:17)
[2019-10-28] MEDS: DULOXETINE HCL 30 MG CAP PO SCH (08:27)
[2019-10-28] MEDS: cefTRIAXone SODIUM 2,000 MG in DEXTROSE 5% 50 ML IV SCH (08:28)
[2019-10-28] MEDS ORDERED: ENOXAPARIN INJ 40 MG/0.4 ML SYR SQ SCH (09:00)
--- NOTE | 2019-10-28 10:44 | Orthopedic Progress Note ---
Date of Service October 28, 2019 Assessment & Plan (1) Wound infection: The surrounding cellulitis seems to be improved. She still having a fair amount of pain. Her white blood cell count has been trending down from yesterday but still elevated at 14. Blood cultures are growing gram-negative bacilli. I discussed with her that is not a typical bacteria seen with a postoperative infection. They are usually gram-positive cocci. We do not have a UA on her which I will order. It is possible she had a cardiovascular surgeon read of a urinary tract infection. I aspirated her knee in the fluid was discolored. There was some bloody tinge to it but it was also cloudy. This is being sent for stat analysis. Unfortunately she is also started to drain from her wound. Most of the drainage appears to be serosanguineous but there is a little bit of purulence around 1 of the kale. Given the fact that she has hardware in place as well as allograft bone supporting the fracture fragment I want to be aggressive in treating her infection. I plan to washout her wound today. If I need to enter into the knee joint and washout the knee joint itself will be determined by the results of the aspiration I just performed. She has been on Lovenox. She has just been diagnosed with a DVT and switched to therapeutic dose Lovenox. However I do not want to wait to wash the knee out because of her Lovenox. We will plan on I&D when availability in the operating room allows later today. Admission and Anticipated Discharge Date Admission Date: October 27, 2019 Subjective Pain has improved but still painful. Fever overnight, nothing today Physical Exam Musculoskeletal: Incision has improved erythema laterally. However she is starting to drain in the mid distal aspect of the wound. Painful to palpation in the knee itself. No erythema up proximally. Pain with range of motion at the knee. No pain to palpation of the calf. There is some drainage from the mid/distal third of the incision most of it is serosanguineous but there is a little bit of purulence around a couple of the kale where the drainage is coming from. Results & Data ([facility]) Vital Signs (Past 12 Hours) Vital Signs Temp Pulse Resp BP Pulse Ox 10/28/19 07:40 37.2 C 84 16 117/64 92 10/28/19 03:12 36.7 C 88 15 130/71 95 10/27/19 23:29 39.2 C H 111 H 17 144/81 H 92
[2019-10-28 11:20] LABS: Appearance Synovial Fluid CLOUDY; Color Synovial Fluid AMBER; Mononuclear WBC Synovial 6.7 %; Polynuclear WBC Synovial 93.3 %; RBC Synovial Fluid (A) 18000 /uL; Source Synovial Fluid KNEE; WBC Synovial Fluid (A) 34189 /ul (0-200)
[2019-10-28] MEDS ORDERED: LIDOCAINE HCL 2% 2 ML VIAL/AMP(20MG/ML) INFIL ONE (13:57)
[2019-10-28] MEDS ORDERED: PROPOFOL IV EMULSION 10 MG/ML 20 ML VIAL IV ONE (13:57)
[2019-10-28] MEDS ORDERED: ePHEDrine sulfate 50 MG/ML SYR ONE (13:57)
[2019-10-28] MEDS ORDERED: PHENYLEPHRINE 100MCG/ML 5ML SYR ONE (13:57)
[2019-10-28] MEDS ORDERED: ONDANSETRON INJ 2 MG/ML 2 ML VIAL ONE (13:57)
[2019-10-28] MEDS ORDERED: fentaNYL citrate 100 MCG/2 ML VIAL ONE ×2 (13:58→17:57)
[2019-10-28] MEDS ORDERED: MIDAZOLAM HCL 1 MG/ML 2ML VIAL ONE (13:58)
--- NOTE | 2019-10-28 14:32 | History & Physical Bridge Note ---
Date of Service October 28, 2019 History & Physical Bridge Note I have examined the patient, reviewed the History & Physical and in the interval since the performance of the History & Physical I have noted the following changes of clinical significance: knee aspirate shows [id number] WB's. Not over 50,000 but given clinical picture its concerning. Will proceed with I and D
[2019-10-28] MEDS ORDERED: BACITRACIN INJ 50,000 UNIT VIAL ONE ×2 (14:56→15:59)
[2019-10-28] MEDS ORDERED: BUPIVACAINE 0.5 % 5 MG/1 ML MPF 30ML VIAL ONE (15:22)
--- NOTE | 2019-10-28 15:32 | Anesthesiology Consultation ---
Date of Service October 28, 2019 Assessment & Plan Chart Review Chart Review: Acceptable Risk for Surgery Consults Requested none History Surgery Operation Date: 10/28/19 10:30 Proposed Procedures p Right Knee Incision and Drainage, - Shamar Berman MD s Possible Knee Arthroscopy - Shamar Berman MD Height/Weight Height: 5 ft 8 in Weight: 93.2 kg Allergies Allergy/AdvReac Type Severity Reaction Status Date / Time No Known Allergies Allergy Verified 10/27/19 16:35 Medications Home Medications Medication Instructions Recorded Confirmed Last Taken amitriptyline 50 mg PO HS 10/15/19 10/27/19 10/26/19 bupropion HCl 150 mg PO QAM 10/15/19 10/27/19 10/26/19 diltiazem HCl 180 mg PO QAM 10/15/19 10/27/19 10/26/19 duloxetine 30 mg PO QAM 10/15/19 10/27/19 10/26/19 ferrous sulfate 325 mg PO QAM 10/15/19 10/27/19 10/16/19 08:00 lisinopril 5 mg PO QAM 10/15/19 10/27/19 10/26/19 omeprazole 20 mg PO QAM 10/15/19 10/27/19 10/26/19 ropinirole 0.5 mg PO 10/15/19 10/27/19 10/26/19 simvastatin 20 mg PO 10/15/19 10/27/19 10/26/19 acetaminophen 1,000 mg PO Q8 14 Days #84 tab 10/17/19 10/27/19 10/26/19 aspirin 81 mg PO BID 30 Days #60 tab 10/17/19 10/27/19 10/26/19 oxycodone 5 mg PO Q4H PRN #18 tab MDD 6 tabs 10/17/19 10/27/19 10/27/19 08:00 Active Medications Generic Name Dose Route Start Last Admin Trade Name Freq PRN Reason Stop Dose Admin Acetaminophen 1,000 mg 10/27/19 22:00 10/28/19 13:27 Acetaminophen 500 Mg Tab PO 11/26/19 21:59 1,000 mg Q8 YENIFER Administration Amitriptyline HCl 50 mg 10/27/19 21:05 10/27/19 22:39 Amitriptyline Hcl 50 Mg Tab PO 11/26/19 21:04 Not Given HS YENIFER Bupropion HCl 150 mg 10/28/19 09:00 10/28/19 08:26 Bupropion Xl 150 Mg Tabcr PO 11/27/19 08:59 150 mg QAM YENIFER Administration Diltiazem HCl 180 mg 10/28/19 09:00 10/28/19 08:25 Diltiazem Er 180 Mg Capcr PO 11/27/19 08:59 180 mg QAM YENIFER Administration Docusate Sodium 100 mg 10/27/19 21:05 10/28/19 08:25 Docusate Sodium 100 Mg Cap PO 11/26/19 21:04 100 mg BID YENIFER Administration Duloxetine HCl 30 mg 10/28/19 09:00 10/28/19 08:27 Duloxetine Hcl 30 Mg Cap PO 11/27/19 08:59 30 mg QAM YENIFER Administration Enoxaparin Sodium 90 mg 10/27/19 23:00 10/28/19 08:27 Enoxaparin 100 Mg/1ml Syr SQ 11/26/19 22:59 90 mg Q12 YENIFER Administration Ferrous Sulfate 325 mg 10/28/19 09:00 10/28/19 08:26 Ferrous Sulfate 325 Mg Tab PO 11/27/19 08:59 325 mg QAM YENIFER Administration Lactated Ringer's 1,000 mls @ 125 mls/hr 10/27/19 21:05 10/28/19 13:24 Lr IV 11/26/19 21:04 125 mls/hr .Q8H YENIFER Administration Vancomycin HCl 1,500 mg/ 530 mls @ 200 mls/hr 10/28/19 02:00 10/28/19 13:32 Sodium Chloride IV 12/09/19 01:59 200 mls/hr Q12H YENIFER Administration Ceftriaxone Sodium 2,000 mg/ 70 mls @ 100 mls/hr 10/28/19 09:00 10/28/19 09:44 Dextrose IV 11/11/19 08:59 Infused DAILY YENIFER Infusion Protocol Ketorolac Tromethamine 15 mg 10/27/19 21:05 10/28/19 08:42 Ketorolac Tromethamine 15 Mg/Ml Vial IV 11/01/19 21:04 15 mg Q6H PRN Administration Pain moderate Morphine Sulfate 4 mg 10/27/19 21:05 10/28/19 10:44 Morphine Sulfate 4 Mg/Ml 1 Ml Carp\Vial IV 11/10/19 21:04 4 mg Q4 PRN Administration Pain severe or intractable Oxycodone HCl 5 mg 10/27/19 21:05 10/28/19 10:45 Oxycodone Hcl Ir 5 Mg Tab (Immediate Release) PO 11/10/19 21:04 5 mg Q4H PRN Administration pain moderate Pantoprazole Sodium 40 mg 10/28/19 09:00 10/28/19 08:26 Pantoprazole 40 Mg Tab PO 11/27/19 08:59 40 mg QAM YENIFER Administration Protocol Ropinirole HCl 0.5 mg 10/27/19 21:05 10/27/19 22:39 Ropinirole Hcl 0.25 Mg Tablet PO 11/26/19 21:04 Not Given HS YENIFER Simvastatin 20 mg 10/27/19 21:05 10/27/19 22:39 Simvastatin 20 Mg Tab PO 11/26/19 21:04 Not Given HS YENIFER NPO Date Last Intake of Fluids: 10/27/19 Time Last Intake of Fluids: 23:00 Date Last Intake of Solids: 10/27/19 Time Last Intake of Solids: 08:00 Last Intake of Solids Comment: Was in the ER all day yesterday and didn't eat Past Medical History Medical History Basal cell carcinoma SHOULDER AND BACK AREA Depression GERD (gastroesophageal reflux disease) Hypertension Kidney stones HX OF AND LITHOTRIPSY Past Surgical History Surgical History Hx laparoscopic cholecystectomy Hx of colonoscopy Hx of hysterectomy Hx of lithotripsy Hx of local excision of skin lesion SHOULDER AND BACK AREA Social History Smoking Status: Never smoker Do You Dip or Chew Tobacco: No Hx Alcohol Use: No Hx Substance Use: No substance use type: does not use Physical Exam Vital Signs Last Vital Signs Temp 37.7 C H 10/28/19 14:09 Pulse 88 10/28/19 14:09 Resp 16 10/28/19 14:09 BP 130/72 10/28/19 14:09 Pulse Ox 89 L 10/28/19 14:09 Testing Laboratory Results 10/28/19 05:25 10/28/19 05:25 PT 11.3 Seconds (9.0-12.0) 10/27/19 11:16 INR 1.1 (0.9-1.1) 10/27/19 11:16 APTT 29.6 Seconds (21.0-31.0) 10/27/19 11:16 10/28/19 10:20 Gram Stain - Final Joint Fluid,Knee 10/27/19 13:19 Aerobic Blood Culture - Preliminary Blood Gram negative bacilli Anaerobic Blood Culture - Preliminary Gram negative bacilli 10/27/19 13:18 Aerobic Blood Culture - Preliminary Blood Gram negative bacilli Anaerobic Blood Culture - Preliminary Gram negative bacilli
[2019-10-28] MEDS ORDERED: bisacodyL 10 MG SUPP PR PRN (17:57)
[2019-10-28] MEDS ORDERED: METOCLOPRAMIDE HCL INJ 5 MG/ML 2 ML VIAL IV PRN ×2 (17:57→17:58)
[2019-10-28] MEDS ORDERED: MAGNESIUM HYDROXIDE SUSP 30 ML UDC PO PRN (17:57)
[2019-10-28] MEDS ORDERED: ONDANSETRON INJ 2 MG/ML 2 ML VIAL IV PRN ×2 (17:57→17:58)
[2019-10-28] MEDS ORDERED: NALOXONE HCL 0.4 MG/1 ML VIAL/CARP IV PRN (17:57)
[2019-10-28] MEDS ORDERED: HYDROmorphone INJ 0.5 MG/0.5 ML SYR IV PRN (17:57)
[2019-10-28] MEDS ORDERED: fentaNYL citrate 100 MCG/2 ML VIAL IV PRN (17:58)
[2019-10-28] MEDS ORDERED: HYDROmorphone INJ 2 MG/ML SYR/VIAL IV PRN (17:58)
[2019-10-28] MEDS ORDERED: ATROPINE SULFATE 0.1 MG/ML 10ML SYR IV PRN (17:58)
[2019-10-28] MEDS ORDERED: ePHEDrine sulfate 50 MG/ML AMP IV PRN (17:58)
[2019-10-28] MEDS ORDERED: PROMETHAZINE HCL 12.5 MG in SODIUM CHLORIDE 0.9% 50 ML IV PRN (17:58)
--- NOTE | 2019-10-28 18:14 | Anesthesiology Progress Note ---
Date of Service October 28, 2019 Anesthesia Post Procedure Vital Signs Vital Signs: Temp Pulse Pulse Pulse Resp BP BP 10/28/19 18:00 85 19 116/64 10/28/19 17:50 87 15 121/72 10/28/19 17:40 89 12 125/81 10/28/19 17:34 36.5 C 91 H 18 119/78 10/28/19 14:09 37.7 C H 88 16 130/72 10/28/19 07:40 37.2 C 84 16 117/64 10/28/19 03:12 36.7 C 88 15 130/71 10/27/19 23:29 39.2 C H 111 H 17 144/81 H 10/27/19 21:05 37.1 C 103 H 20 158/90 H 10/27/19 20:00 103 H 15 142/82 H 10/27/19 19:30 100 H 15 151/82 H 10/27/19 19:09 37.4 C 10/27/19 19:00 98 H 16 152/85 H 10/27/19 18:30 105 H 17 152/83 H Pulse Ox 10/28/19 18:00 97 10/28/19 17:50 97 10/28/19 17:40 96 10/28/19 17:34 94 10/28/19 14:09 89 L 10/28/19 07:40 92 10/28/19 03:12 95 10/27/19 23:29 92 10/27/19 21:05 97 10/27/19 20:00 98 10/27/19 19:30 95 10/27/19 19:09 10/27/19 19:00 93 10/27/19 18:30 93 Pain Intensity Right Knee: Pain Intensity: 5 Transfer of Care Handoff Completed per policy Notes Mental Status: alert / awake / arousable and participated in evaluation Patient Amnestic to Procedure: Yes Nausea / Vomiting: adequately controlled Pain: adequately controlled Airway Patency, RR, SpO2: stable & adequate BP & HR: stable & adequate Hydration State: stable & adequate Anesthetic Complications: no major complications apparent
--- NOTE | 2019-10-28 18:24 | Operative Report ---
Post Operative Report Pre & Post Diagnosis Operation Date: 10/28/19 10:30 Pre-Op Diagnosis: Right knee wound infection status post ORIF tibial plateau fracture and possible septic right knee Post-Op Diagnosis: Right knee wound infection status post ORIF tibial plateau fracture and possible septic right knee I identified the patient and participated in the time-out.: Yes Procedure Operation Date: 10/28/19 10:30 Actual Procedures p Open Incision and Drainage of incision from previous tibial plateau fracture ORIF and arthroscopic irrigation debridement of right knee joint (Right) - Shamar Berman MD Surgeon Shamar Berman MD Research And Development Manager None Estimated Blood Loss 50 Findings Consistent with Post-Op Diagnosis Specimens 2 cultures for aerobic and anaerobic Drains 1 drain in the incision and another drain in the joint Anesthesia Type General Complications none Disposition Accompanied Patient To Recovery: No Disposition: Recovery Room Indications Patient is a 64-year-old female who had undergone open reduction total fixation of right tibial plateau fracture a little less than 2 weeks ago. She reports that 2 days ago she started feeling a little cold at night but also feeling warm. On Saturday she had increasing pain and erythema to the leg. She presented to the emergency room where she was found to have a significantly elevated white blood cell count at 17 she was tachycardic and hypertensive. She was evaluated with a CT scan which demonstrated no drainable fluid collection. There was skin changes consistent with cellulitis. At that time the knee 1 of my partners that was in house evaluated her and felt that the knee was not too bad. We elected to start IV antibiotics for treatment of her cellulitis and monitor the response to the wound and the infection. Ultrasound of the leg demonstrated DVT. She was started on treatment dose Lovenox this morning. I evaluated her this morning and the wound from the picture we had taken yesterday evening to what it look like this morning it had worsened. There were areas that had started to become purulent which was not present yesterday. The wound had also started to drain which was not doing yesterday. Her blood cultures were growing gram-negative bacilli which was surprising that it was not a gram- positive cocci. Better gram-negative coverage was then added with cefepime. I aspirated the knee and there was less than 50,000 white blood cell counts in the fluid. There was about 34,000. But given her overall clinical picture the rapidness with which things were declining and the fact that she had been on IV antibiotics already I was not convinced that there was not a septic arthritic picture here in addition to the worsening of the wound itself in the beginning of drainage. I elected to proceed with irrigation and debridement. Description of Procedure Risks, benefits and alternatives to surgery including, but not limited to, infection, DVT, pain, stiffness, need for revision surgery, failure to relieve all symptoms, damage to blood vessels, damage to nerves, risk of the anesthesia were discussed with the patient and they wished to proceed. The patient was identified. Laterality was confirmed and marked. The patient received a preoperative antibiotic. They were transferred to the operating room and placed in supine position and induced into general endotracheal anesthesia per the anesthesia staff. A well-padded tourniquet was placed on the thigh and the limb was prepped and draped in the usual standard manner with Betadine. I placed a tourniquet on the leg but I did not use it during the case. The lateral incision from her previous open reduction term fixation had some purulence noted and serosanguineous drainage. I reopen this incision and encountered a significant amount of fluid that appeared to be infectious in nature. The amount of fluid that was present was quite surprising given the fact that just last night she had a CT scan that demonstrated that there was no drainable fluid collection. I removed the #1 Vicryl sutures that we had previously placed for her fascial reapproximation. A portion of the tibial plateau plate had not been able to be covered completely with fascia just due to the bulk of the plate itself and the plate was obviously contaminated by the inf ection. I performed a sharp debridement down to the level of bone. I excised the skin edges that were purulent and infected and then freshened the rest of the skin edges. We had some mild oozing from her Lovenox treatment she had received that morning but it was reasonable and I felt that the need to wash the knee out outweighed waiting for the Lovenox to have worn off more. I then thoroughly irrigated the region with 9 L of bacitracin impregnated fluid using a Pulsavac. I tried to debride some of the allograft bone that we had placed previously but a fair amount of that was back behind the plate and was not easily accessible. I did not see any visible communication with the knee joint through the wound itself but given her clinical picture and the cloudiness of the fluid I seen earlier in the day when I aspirated her knee I felt it was best to perform an arthroscopic irrigation and debridement of the knee joint itself. A drain was placed in the region of the plate and then exit it out distally. A Hemovac drain was connected. I closed the lateral wound with interrupted 2-0 PDS suture and interrupted 2-0 nylon suture. After closing the lateral wound we changed gloves placed a new drape and reprepped with Betadine prior to entering the knee joint. I made a standard anterolateral viewing portal made through a stab incision and bluntly entered the suprapatellar pouch. I encountered a fair amount of cloudy serosanguineous fluid. Then under spinal needle localization I established an anteromedial portal. There was a fair amount of erythema throughout the synovium particularly in the suprapatellar pouch. There was some stringy material within the patellofemoral joint. I performed a complete irrigation debridement utilizing 9 L of saline utilizing arthroscopic shaver for the debridement. I utilized the shaver to perform a complete synovectomy. I then placed a drain into the knee joint. The portal sites were closed with nylon. A sterile dressing was applied. All needle and sponge counts were correct at the end of the procedure. The patient was transferred to the PACU in stable condition without apparent complication. Given the exposure of the plate and the need to preserve the hardware with her recent fracture fixation she will likely need a prolonged course of antibiotics. I attest to the content of the Intraoperative Record and any orders documented therein. Any exceptions are noted below.
--- NOTE | 2019-10-28 19:20 | Billing Data ---
Date of Service October 28, 2019 Coding Level of Care Code 60997 Subseq Hosp Care Lvl 3
[2019-10-28] MEDS: SENNA 8.6 MG TAB PO SCH (20:16)
[2019-10-28] MEDS: ROPINIROLE HCL 0.25 MG TABLET PO SCH (20:16)
[2019-10-28] MEDS: SIMVASTATIN 20 MG TAB PO SCH (20:17)
[2019-10-28] MEDS: AMITRIPTYLINE HCL 50 MG TAB PO SCH (20:17)
[2019-10-28] MEDS: SODIUM CHLORIDE 0.9% 1000ML 1,000 ML IV SCH (20:17)
[2019-10-29] MEDS ORDERED: VANCOMYCIN TROUGH ONE ×2 (01:30→02:30)
[2019-10-29] MEDS: MoRPHine SULFATE 4 MG/ML 1 ML CARP\\VIAL IV PRN (02:07)
[2019-10-29] MEDS: VANCOMYCIN HCL 1,500 MG in SODIUM CHLORIDE 0.9% 500 ML IV SCH (02:08)
[2019-10-29 02:20] LABS: Basophils # (auto) 0.02 K/uL (0-0.2); Basophils % (auto) 0.2 %; Eosinophils # (auto) 0.08 K/uL (0-0.5); Eosinophils % (auto) 0.8 %; Hematocrit (blood only) 31.7 % (37-47); Hemoglobin 9.7 g/dL (12.0-16.0); Immature Granulocytes # (auto) 0.02 K/uL (0.00-0.02); Immature Granulocytes % (auto) 0.2 %; Lymphocytes # (auto) 0.54 K/uL (1.2-3.4); Lymphocytes % (auto) 5.3 %; Mean Corpuscular Hgb Conc 30.6 g/dL (32-36); Mean Corpuscular Volume 94.9 fL (80-100); Mean Platelet Volume 9.3 fL (7.4-10.4); Neutrophils # (auto) 9.06 K/uL (1.4-6.5); Neutrophils % (auto) 89.5 %; Platelet Count 367 K/uL (130-400); RDW Coefficient of Variation 13.1 % (11.5-14.5); RDW Standard Deviation 45.5 fL (36.4-46.3); Red Blood Count 3.34 M/uL (4.2-5.4); White Blood Count 10.12 K/uL (4.8-10.8)
[2019-10-29 02:36] LABS: BUN Creatinine Ratio 14.8 (10-20); Calcium 8.2 mg/dl (8.5-10.1); Creatinine Clr Calc Pharmacy 72.8 ml/min; Est GFR (African American) 75.7; Est GFR (Non-African American) 65.3; Potassium 3.8 mmol/L (3.5-5.1)
--- NOTE | 2019-10-29 02:43 | Pharmacy Report ---
Pharmacy Abx Dose Short Note - Date of Service October 29, 2019 - Assessment & Plan Assessment 64 year old F receiving vancomycin and Rocephin for treatment of possible R knee septic arthritis plus a Gram negative bacteremia Day # 3 of antimicrobial therapy. Plan Vancomycin * Trough level of 16.2 mcg/mL is therapeutic * Continue dose of 1500 mg IV every 12 hours * Goal trough level for septic arthritis: 15 to 20 mcg/mL * recheck levels based upon clinical status Pharmacy will continue to follow and will adjust dose/frequency as necessary. Thank you.
[2019-10-29] MEDS: ACETAMINOPHEN 500 MG TAB PO SCH ×3 (05:36→21:30)
[2019-10-29] MEDS: SODIUM CHLORIDE 0.9% 1000ML 1,000 ML IV SCH (05:46)
--- NOTE | 2019-10-29 06:54 | Hospitalist Progress Note ---
Date of Service October 29, 2019 Assessment & Plan (1) Septic arthritis: Patient is a 64 year old female with PMHx R Tibial Plateau fx s/p ORIF, GERD, HTN, Depression who presented with abrupt onset of R knee pain including fevers and chills. Septic Arthritis -Treated empirically with Cefepime, Flagyl, Vancomycin, Zosyn in the ED -Continued Vancomycin as a majority of Septic joints are gram +, concern for MRSA with recent surgery and instrumentation placement -- DC'd on 10/29/19 -Blood cultures positive for gram neg bacilli, Pastuerella multocida -Discussed with lab about sensitivities, would have to send out for sensitivities to [place] -Continue Ceftriaxone 2000mg QD for treatment -Discussed case with [facility] ID Consult -Recommend 6 week IV treatment and then likely 3-6 month oral suppressive therapy -Also recommended 6 week follow up at [place] -Awaiting note for further lab recommendations -Discussed with Case Management as patient will require line placement for continued IV antibiotic therapy for the next 6 weeks. -Pain control Tylenol, Morphine, Oxycodone -Ortho Consulted -Knee aspirated - showing WBC, but no growths -I&D of R knee and Washout of wound 10/28/19 Closed Fx R Tibial Plateau S/P ORIF -S/P ORIF on 10/16/19 Right Leg DVT -DVT noted on US at R posterior tibial and peroneal vein -No clot above the knee -Therapeutic Lovenox for treatment Depression -Continue Bupropion -Continue Duloxetine -Continue Amitriptyline GERD -Continue Pantoprazole 40mg qAM HLD -Continue Simvastatin 20mg qHS Dispo: Med/Surg FEN: Regular diet DVT: Therapeutic Lovenox Code: Full (2) Deep postoperative wound infection: (3) Closed fracture of right tibial plateau: (4) Cellulitis of leg, right: (5) Depression: (6) GERD (gastroesophageal reflux disease): (7) Hypertension: (8) Right leg DVT: Admission and Anticipated Discharge Date Admission Date: October 27, 2019 Supervising Physician Co-Signing Physician Notes I personally examined the patient and verified all sandhu points of history and exam, discussed case, and agree with decision making with Dr Dejesus. has a cat - sleeps at her head. has a dog, sleeps near her legs. feeling better otherwise. vitals noted nad heent nc at mmm breathing unlabored no accessory muscles good effort sepsis and septic knee - from [place]. suspect dog > cat due to proximity when she sleeps. rocephin. ?transition to augmentin at some point possibly. improving. distal dvt - anticoagulation. otherwise as above Subjective Patient seen at the bed side this morning, patient noting that she was feeling "back to my original surgery" in regards to her pain. She notes over all she is feeling better and that she thinks the surgery went well. She states that the pain is primarily on the top of her knee now rather than the entire knee and back of the knee. Denies any fevers, chills. Does note that she had difficulties fully coming off of oxygen after her last procedure and general anesthesia as well. Denies any SOB currently. Review of Systems Constitutional: no fever and no chills Respiratory: no cough, no dyspnea and no pain on inspiration Cardiovascular: no chest pain and no dyspnea on exertion Gastrointestinal: no abdominal pain, no nausea and no vomiting Genitourinary: no dysuria Musculoskeletal: + joint pain Physical Exam Constitutional: well developed and well nourished; no acute distress Respiratory: normal respiratory effort, lungs clear to auscultation Cardiovascular: RRR, no murmur, no edema Gastrointestinal (Abdomen): normal bowel sounds, soft, nontender, no hepatosplenomegaly Musculoskeletal: Two drains from surgical site, one draining bloody discharge and the other serosanguineous discharge in the line. Results & Data Results & Data ([facility]) Vital Signs (Past 12 Hours) Vital Signs Temp Pulse Resp BP Pulse Ox 10/29/19 06:08 89 16 92 10/29/19 03:19 37.0 C 98 H 18 116/66 92 10/28/19 23:06 37.7 C H 99 H 16 129/73 94 10/28/19 21:27 36.8 C 83 16 112/68 93 10/28/19 20:51 36.7 C 90 16 110/64 93 10/28/19 20:01 95 10/28/19 19:40 36.6 C 92 H 16 109/56 L 10/28/19 19:18 37 C 90 16 116/64 94 Resident Activity Tracking Resident Involvement: Resident Care Provided Care Provided: Adult [facility]
--- NOTE | 2019-10-29 08:01 | Orthopedic Progress Note ---
Date of Service October 29, 2019 Assessment & Plan (1) Deep postoperative wound infection: POD#1 right lateral leg surgical wound I&D, arthroscopic I&D -Pain management -Lovenox for + DVT -TTWB RLE -Hemovac's in place until drainage reasonable -Cultures-blood cultures positive for gram negative bacilli, further pending. OR cultures pending, knee aspirate culture pending. -Will likely need 6 weeks of IV antibiotics due to infection and retained hardware (2) Cellulitis of leg, right: (3) Septic arthritis: Admission and Anticipated Discharge Date Admission Date: October 27, 2019 Subjective Patient seen this morning resting in bed, feeling better this morning. No fever or chills. No chest pain, n/v/d. Is having some sob this morning, O2 was down in 80s, now on nasal canula. No other complaints. Review of Systems Review of Systems: All systems reviewed & are unremarkable except as noted in HPI & below Physical Exam Physical Exam: Dressing is c/d/i, hemovac x [address] No calf tenderness. Toes mobile with good dorsiflexion. No calf tenderness today. Constitutional: well developed and well nourished; no acute distress Results & Data ([facility]) Vital Signs (Past 12 Hours) Vital Signs Temp Pulse Resp BP Pulse Ox 10/29/19 07:09 37.1 C 78 18 113/64 95 10/29/19 06:08 89 16 92 10/29/19 03:19 37.0 C 98 H 18 116/66 92 10/28/19 23:06 37.7 C H 99 H 16 129/73 94 10/28/19 21:27 36.8 C 83 16 112/68 93 10/28/19 20:51 36.7 C 90 16 110/64 93 10/28/19 20:01 95
[2019-10-29] MEDS: cefTRIAXone SODIUM 2,000 MG in DEXTROSE 5% 50 ML IV SCH (09:27)
[2019-10-29] MEDS: OXYCODONE HCL IR 5 MG TAB (IMMEDIATE RELEASE) PO PRN ×2 (09:27→23:40)
[2019-10-29] MEDS: DOCUSATE SODIUM 100 MG CAP PO SCH ×2 (09:28→21:28)
[2019-10-29] MEDS: PANTOprazole 40 MG TAB PO SCH (09:29)
[2019-10-29] MEDS: DULOXETINE HCL 30 MG CAP PO SCH (09:29)
[2019-10-29] MEDS: MULTIVITAMIN TAB PO SCH (09:29)
[2019-10-29] MEDS: FERROUS SULFATE 325 MG TAB PO SCH (09:30)
[2019-10-29] MEDS: dilTIAZem ER 180 MG CAPCR PO SCH (09:30)
[2019-10-29] MEDS: ENOXAPARIN 100 MG/1ML SYR SQ SCH ×2 (09:31→21:30)
[2019-10-29] MEDS: BuPROPion XL 150 MG TABCR PO SCH (09:32)
[2019-10-29] MEDS: ACETAMINOPHEN 500 MG TAB PO PRN (17:10)
--- NOTE | 2019-10-29 19:46 | Billing Data ---
Date of Service October 29, 2019 Coding Level of Care Code 69892 Subseq Hosp Care Lvl 3
[2019-10-29] MEDS: SIMVASTATIN 20 MG TAB PO SCH (21:28)
[2019-10-29] MEDS: SENNA 8.6 MG TAB PO SCH (21:29)
[2019-10-29] MEDS: ROPINIROLE HCL 0.25 MG TABLET PO SCH (21:29)
[2019-10-29] MEDS: AMITRIPTYLINE HCL 50 MG TAB PO SCH (21:29)
[2019-10-30] MEDS: ACETAMINOPHEN 500 MG TAB PO SCH ×3 (05:09→20:59)
[2019-10-30] MEDS: OXYCODONE HCL IR 5 MG TAB (IMMEDIATE RELEASE) PO PRN ×2 (05:34→20:56)
[2019-10-30 06:09] LABS: Basophils # (auto) 0.01 K/uL (0-0.2); Basophils % (auto) 0.2 %; Eosinophils # (auto) 0.28 K/uL (0-0.5); Eosinophils % (auto) 4.7 %; Hematocrit (blood only) 25.7 % (37-47); Hemoglobin 8.3 g/dL (12.0-16.0); Immature Granulocytes # (auto) 0.01 K/uL (0.00-0.02); Immature Granulocytes % (auto) 0.2 %; Lymphocytes # (auto) 0.72 K/uL (1.2-3.4); Lymphocytes % (auto) 12.1 %; Mean Corpuscular Hemoglobin 30.1 pg (25-34); Mean Corpuscular Hgb Conc 32.3 g/dL (32-36); Mean Corpuscular Volume 93.1 fL (80-100); Mean Platelet Volume 9.2 fL (7.4-10.4); Monocytes # (auto) 0.49 K/uL (0.11-0.59); Monocytes % (auto) 8.2 %; Neutrophils # (auto) 4.44 K/uL (1.4-6.5); Neutrophils % (auto) 74.6 %; Platelet Count 330 K/uL (130-400); RDW Coefficient of Variation 13.1 % (11.5-14.5); RDW Standard Deviation 44.2 fL (36.4-46.3); Red Blood Count 2.76 M/uL (4.2-5.4); White Blood Count 5.95 K/uL (4.8-10.8)
[2019-10-30 06:47] LABS: BUN Creatinine Ratio 13.4 (10-20); Calcium 8.9 mg/dl (8.5-10.1); Creatinine Clr Calc Pharmacy 80.7 ml/min; Est GFR (African American) 85.8; Potassium 3.5 mmol/L (3.5-5.1)
[2019-10-30] MEDS: DULOXETINE HCL 30 MG CAP PO SCH (08:38)
[2019-10-30] MEDS: FERROUS SULFATE 325 MG TAB PO SCH (08:38)
[2019-10-30] MEDS: MULTIVITAMIN TAB PO SCH (08:38)
[2019-10-30] MEDS: DOCUSATE SODIUM 100 MG CAP PO SCH ×2 (08:38→20:58)
[2019-10-30] MEDS: BuPROPion XL 150 MG TABCR PO SCH (08:39)
[2019-10-30] MEDS: dilTIAZem ER 180 MG CAPCR PO SCH (08:39)
[2019-10-30] MEDS: PANTOprazole 40 MG TAB PO SCH (08:39)
[2019-10-30] MEDS: ENOXAPARIN 100 MG/1ML SYR SQ SCH (08:40)
[2019-10-30] MEDS: cefTRIAXone SODIUM 2,000 MG in DEXTROSE 5% 50 ML IV SCH (08:47)
--- NOTE | 2019-10-30 11:05 | Hospitalist Progress Note ---
Date of Service October 30, 2019 Assessment & Plan (1) Septic arthritis: Patient is a 64 year old female with PMHx R Tibial Plateau fx s/p ORIF, GERD, HTN, Depression who presented with abrupt onset of R knee pain including fevers and chills. 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 -Continue Ceftriaxone 2000mg QD for treatment -Discussed case with [facility] ID Consult -Recommend 6 week IV treatment and then likely 3-6 month oral suppressive therapy -Also recommended 6 week follow up at [place] -Awaiting note for further lab recommendations -Discussed with Case Management as patient will require line placement for continued IV antibiotic therapy for the next 6 weeks. -PICC line consented for and placed today. -Pain control Tylenol, Morphine, Oxycodone, added on scheduled Toradol q6h. -Ortho Consulted -Knee aspirated - showing WBC, but no growths -I&D of R knee and Washout of wound 10/28/19 Closed Fx R Tibial Plateau S/P ORIF -S/P ORIF on 10/16/19 Right Leg DVT -DVT noted on US at R posterior tibial and peroneal vein -No clot above the knee -Therapeutic Lovenox for treatment Depression -Continue Bupropion -Continue Duloxetine -Continue Amitriptyline GERD -Continue Pantoprazole 40mg qAM HLD -Continue Simvastatin 20mg qHS Dispo: Med/Surg FEN: Regular diet DVT: Therapeutic Lovenox Code: Full (2) Deep postoperative wound infection: (3) Closed fracture of right tibial plateau: (4) Cellulitis of leg, right: (5) Depression: (6) GERD (gastroesophageal reflux disease): (7) Hypertension: (8) Right leg DVT: Admission and Anticipated Discharge Date Admission Date: October 27, 2019 Supervising Physician Co-Signing Physician Notes I personally examined the patient and verified all sandhu points of history and exam, discussed case, and agree with decision making with Dr Dejesus. 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 answered all questions. pain still fairly bad at times - meds help but not always enough. later discussed risks/benefits for PICC vitals noted nad heent nc at mmm breathing unlabored no accessory muscles good effort sepsis and septic knee - from pasturella. suspect dog > cat due to proximity when she sleeps. rocephin. PICC today for anticipated IV rocephin after discharge (for now 6wks) ?transition to augmentin at some point possibly when sensitivities come back if profile favorable - will be ID decision as outpt. improving. distal dvt - anticoagulation. otherwise as above Subjective Patient seen at the bedside this morning. Patient noting that her pain feels similar to post-op surgical pain that she experienced prior. Notes that she had a little more disorientation yesterday evening after being seen, but that has since completely resolved. She has no other complaints at this time. Review of Systems Constitutional: no fever and no chills Respiratory: no cough, no dyspnea and no pain on inspiration Cardiovascular: no chest pain, no radiating jaw, neck or arm pain, no dyspnea on exertion and no palpitations Gastrointestinal: no abdominal pain, no nausea and no vomiting Musculoskeletal: + joint pain Physical Exam Constitutional: well developed and well nourished; no acute distress Respiratory: normal respiratory effort, lungs clear to auscultation Cardiovascular: RRR, no murmur, no edema Vessels: posterior tibial pulses present and dorsalis pedis pulses present Gastrointestinal (Abdomen): normal bowel sounds, soft, nontender, no hepatosplenomegaly Musculoskeletal: R knee drains with minimal serosanguineous fluid. Results & Data Results & Data ([facility]) Vital Signs (Past 12 Hours) Vital Signs Temp Pulse Resp BP Pulse Ox 10/30/19 08:36 84 132/78 95 10/30/19 07:28 36.8 C 80 16 129/76 96 10/29/19 23:31 37.2 C 79 20 126/74 96 Resident Activity Tracking Resident Involvement: Resident Care Provided Care Provided: Adult Hospital Medicine
[2019-10-30] MEDS: KETOROLAC 30 MG/ML VIAL IV SCH ×3 (12:35→23:20)
--- NOTE | 2019-10-30 16:59 | Orthopedic Progress Note ---
Date of Service October 30, 2019 Assessment & Plan (1) Deep postoperative wound infection: POD#2 right lateral leg surgical wound I&D, arthroscopic I&D -Pt much improved since I last visited her. -Pain management -Lovenox for + DVT -TTWB RLE -Hemovac's in place until drainage reasonable -Cultures-blood cultures positive for Pasteurella Multocida -Will likely need 6 weeks of IV antibiotics due to infection and retained hardware. Planning for Rocephin daily. (2) Cellulitis of leg, right: Dr. Ace has examined the patient as well. Plan for IV antibiotics for the next 24 hours. It was felt that the erythema and overt warmth had not in volve the whole of the knee at this point in time so no aspiration will be performed. Plan to keep the patient n.p.o. after midnight. We will reexamine her in the morning. (3) Septic arthritis: Admission and Anticipated Discharge Date Admission Date: October 27, 2019 Subjective Postop day 2 patient currently sitting up in bed. She has just received her PICC line. No complaints today. Feeling well. Pain controlled. She states that she has outpatient IV antibiotic set up with [facility]. Physical Exam Physical Exam: Patient wearing her immobilizer which is loosened. Dressing taken down. Wound appears benign. Minimal erythema noted at this time and her swelling is down. Neurovascular is intact. Toes are mobile. HV with 25 cc of output. Results & Data ([facility]) Vital Signs (Past 12 Hours) Vital Signs Temp Pulse Resp BP Pulse Ox 10/30/19 15:09 36.9 C 77 16 129/76 95 10/30/19 08:36 84 132/78 95 10/30/19 07:28 36.8 C 80 16 129/76 96
[2019-10-30] MEDS: RIVAROXABAN 15 MG TAB PO SCH (18:58)
--- NOTE | 2019-10-30 19:06 | Billing Data ---
Date of Service October 30, 2019 Coding Level of Care Code 87516 Subseq Hosp Care Lvl 3
[2019-10-30] MEDS: SIMVASTATIN 20 MG TAB PO SCH (20:57)
[2019-10-30] MEDS: ROPINIROLE HCL 0.25 MG TABLET PO SCH (20:58)
[2019-10-30] MEDS: AMITRIPTYLINE HCL 50 MG TAB PO SCH (20:58)
[2019-10-30] MEDS: SENNA 8.6 MG TAB PO SCH (20:58)
[2019-10-31] MEDS: ACETAMINOPHEN 500 MG TAB PO SCH ×3 (06:06→21:00)
[2019-10-31] MEDS: KETOROLAC 30 MG/ML VIAL IV SCH ×4 (06:06→23:33)
[2019-10-31 06:32] LABS: Basophils # (auto) 0.02 K/uL (0-0.2); Basophils % (auto) 0.3 %; Eosinophils # (auto) 0.27 K/uL (0-0.5); Eosinophils % (auto) 4.7 %; Hematocrit (blood only) 25.6 % (37-47); Hemoglobin 8.3 g/dL (12.0-16.0); Immature Granulocytes # (auto) 0.03 K/uL (0.00-0.02); Immature Granulocytes % (auto) 0.5 %; Lymphocytes % (auto) 12.1 %; Mean Corpuscular Hemoglobin 29.5 pg (25-34); Mean Corpuscular Hgb Conc 32.4 g/dL (32-36); Mean Corpuscular Volume 91.1 fL (80-100); Mean Platelet Volume 9.4 fL (7.4-10.4); Monocytes # (auto) 0.59 K/uL (0.11-0.59); Monocytes % (auto) 10.2 %; Neutrophils # (auto) 4.17 K/uL (1.4-6.5); Neutrophils % (auto) 72.2 %; Platelet Count 374 K/uL (130-400); RDW Standard Deviation 43.8 fL (36.4-46.3); Red Blood Count 2.81 M/uL (4.2-5.4); White Blood Count 5.78 K/uL (4.8-10.8)
--- NOTE | 2019-10-31 07:21 | Orthopedic Progress Note ---
Date of Service October 31, 2019 Assessment & Plan (1) Deep postoperative wound infection: POD#3 right lateral leg surgical wound I&D, arthroscopic I&D -Pain management- curently well controlled -Lovenox for + DVT -TTWB RLE - Removed Hemovacs this am -Cultures-blood cultures positive for Pasteurella Multocida -Will likely need 6 weeks of IV antibiotics due to infection and retained hardware. Planning for Rocephin daily. -Orthopedically stable, will need f/u with Dr Berman team at [facility] in 10-12 days. (2) Cellulitis of leg, right: (3) Septic arthritis: Admission and Anticipated Discharge Date Admission Date: October 27, 2019 Supervising Physician Co-Signing Physician Notes Patient seen and examined. Agree with HINA Barbour's note as above. Pain is well controlled. In reviewing case management notes, it looks like she will not be able to be discharged over the weekend due to difficulty setting up home IV antibiotics. Subjective Postop day 3 patient currently sitting up in bed. denies CP/SOB, Denies fever/chills. pain currently well controlled. received PICC yesterday Physical Exam Physical Exam: Vital Signs Temp 36.8 C 10/31/19 00:10 Pulse 76 10/31/19 00:10 Resp 14 10/31/19 00:10 BP 115/58 L 10/31/19 00:10 Pulse Ox 92 10/31/19 00:10 Intake & Output 10/30/19 10/31/19 10/31/19 18:59 06:59 18:59 Intake Total 570 / 810 240 / 810 Output Total / 75 50 / 75 Balance 545 / 735 190 / 735 Intake: IV 70 / 70 Rocephin 2,000 mg In D5w 50 ml 70 / 70 @ 100 mls/hr I V DAILY [facility] Rx#: [id number] Oral 500 / 740 240 / 740 Output: Drain Output 25 / 75 50 / 75 Right Knee Hem ovac #1 0 / 50 50 / 50 Right Knee Hem ovac #2 25 / 25 0 / 25 Other: # Unmeasured Voi ds 1 2 Constitutional: WD/WN, vitals as above no acute distress Musculoskeletal: right leg: immobilizer taken down, incision clean and dry, well approximated. I removed both hemovacs this am as there was no drain output this am. Calf SNT, NVDI. DP palpable. Results & Data ([facility]) Vital Signs (Past 12 Hours) Vital Signs Temp Pulse Resp BP Pulse Ox 10/31/19 00:10 36.8 C 76 14 115/58 L 92 Laboratory Results Laboratory Results WBC 5.78 K/uL (4.8-10.8) 10/31/19 05:29 RBC 2.81 M/uL (4.2-5.4) L 10/31/19 05:29 Hgb 8.3 g/dL (12.0-16.0) L 10/31/19 05:29 Hct 25.6 % (37-47) L 10/31/19 05:29 MCV 91.1 fL (80-100) 10/31/19 05:29 MCH 29.5 pg (25-34) 10/31/19 05:29 MCHC 32.4 g/dL (32-36) 10/31/19 05:29 RDW Std Deviation 43.8 fL (36.4-46.3) 10/31/19 05:29 RDW Coeff of Florina 13.0 % (11.5-14.5) 10/31/19 05:29 Plt Count 374 K/uL (130-400) 10/31/19 05:29 MPV 9.4 fL (7.4-10.4) 10/31/19 05:29 Immature Gran % (Auto) 0.5 % 10/31/19 05:29 Neut % (Auto) 72.2 % 10/31/19 05:29 Lymph % (Auto) 12.1 % 10/31/19 05:29 [place] % (Auto) 10.2 % 10/31/19 05:29 Eos % (Auto) 4.7 % 10/31/19 05:29 Baso % (Auto) 0.3 % 10/31/19 05:29 Neut # (Auto) 4.17 K/uL (1.4-6.5) 10/31/19 05:29 Lymph # (Auto) 0.70 K/uL (1.2-3.4) L 10/31/19 05:29 [place] # (Auto) 0.59 K/uL (0.11-0.59) 10/31/19 05:29 Eos # (Auto) 0.27 K/uL (0-0.5) 10/31/19 05:29 Baso # (Auto) 0.02 K/uL (0-0.2) 10/31/19 05:29 Immature Gran # (Auto) 0.03 K/uL (0.00-0.02) H 10/31/19 05:29 ESR 37 mm/hr (0-21) H 10/27/19 11:16 PT 11.3 Seconds (9.0-12.0) 10/27/19 11:16 INR 1.1 (0.9-1.1) 10/27/19 11:16 APTT 29.6 Seconds (21.0-31.0) 10/27/19 11:16 PTT Ratio 1.1 10/27/19 11:16 Sodium 138 mmol/L (136-145) 10/30/19 05:41 Potassium 3.5 mmol/L (3.5-5.1) 10/30/19 05:41 Chloride 103 mmol/L (98-107) 10/30/19 05:41 Carbon Dioxide 29 mmol/L (21-32) 10/30/19 05:41 Anion Gap 6.0 (3-11) 10/30/19 05:41 BUN 11 mg/dl (7-18) 10/30/19 05:41 Creatinine 0.83 mg/dl (0.6-1.2) 10/30/19 05:41 Est Cr Clr Drug Dosing 80.7 ml/min 10/30/19 05:41 Est GFR ( Amer) 85.8 10/30/19 05:41 Est GFR (Non-Af Amer) 74.0 10/30/19 05:41 BUN/Creatinine Ratio 13.4 (10-20) 10/30/19 05:41 Glucose 97 mg/dl (70-99) 10/30/19 05:41 Lactate 2.0 mmol/L (0.4-2.0) 10/27/19 13:18 Calcium 8.9 mg/dl (8.5-10.1) 10/30/19 05:41 Magnesium 1.7 mg/dl (1.8-2.4) L 10/27/19 11:16 Total Bilirubin 0.7 mg/dl (0.2-1) 10/27/19 11:16 AST 12 U/L (15-37) L 10/27/19 11:16 ALT 21 U/L (12-78) 10/27/19 11:16 Alkaline Phosphatase 77 U/L (45-117) 10/27/19 11:16 C-Reactive Protein 4.31 mg/dl (0-0.29) H 10/27/19 11:16 Total Protein 7.6 gm/dl (6.4-8.2) 10/27/19 11:16 Albumin 3.4 gm/dl (3.4-5.0) 10/27/19 11:16 Globulin 4.2 gm/dl (2.5-4.0) H 10/27/19 11:16 Albumin/Globulin Ratio 0.8 (0.9-2) L 10/27/19 11:16 Procalcitonin 7.73 ng/ml (0-0.5) H 10/27/19 11:16 Synovial Source KNEE 10/28/19 10:20 Synovial Color IQRA 10/28/19 10:20 Synovial Appearance CLOUDY 10/28/19 10:20 Synovial WBC 74413 /ul (0-200) H 10/28/19 10:20 Synovial RBC 78452 /uL 10/28/19 10:20 Synovial Polynuclear % 93.3 % 10/28/19 10:20 Synovial Mononuclear % 6.7 % 10/28/19 10:20 Vancomycin Trough 16.2 mcg/ml (See Comment) 10/29/19 01:35 COVID-19 Eval Order Covid19 [facility] 10/28/19 11:00 SARS-CoV-2, RNA, NAAT NEGATIVE (NEGATIVE) 10/28/19 11:00 Microbiology 10/29/19 15:54 Blood Aerobic Blood Culture - Preliminary No growth in Aerobic bottle after 24 hours. 10/29/19 15:54 Blood Anaerobic Blood Culture - Preliminary No growth in Anaerobic bottle after 24 hours. 10/29/19 15:44 Blood Aerobic Blood Culture - Preliminary No growth in Aerobic bottle after 24 hours. 10/29/19 15:44 Blood Anaerobic Blood Culture - Preliminary No growth in Anaerobic bottle after 24 hours. 10/28/19 16:00 Leg,Right Gram Stain - Final 10/28/19 16:00 Leg,Right Aerobic and Anaerobic Culture - Preliminary Pin-point growth present, reincubating. 10/28/19 10:20 Joint Fluid,Knee Gram Stain - Final 10/28/19 10:20 Joint Fluid,Knee Aerobic and Anaerobic Culture - Preliminary Pin-point growth present, reincubating. 10/28/19 16:00 Leg,Right Gram Stain - Final 10/28/19 16:00 Leg,Right Aerobic and Anaerobic Culture - Preliminary Gram negative bacilli 10/27/19 13:18 Blood Aerobic Blood Culture - Preliminary Pasteurella multocida 10/27/19 13:18 Blood Anaerobic Blood Culture - Final Pasteurella multocida 10/27/19 13:19 Blood Aerobic Blood Culture - Final Pasteurella multocida 10/27/19 13:19 Blood Anaerobic Blood Culture - Final Pasteurella multocida
[2019-10-31] MEDS: DOCUSATE SODIUM 100 MG CAP PO SCH ×2 (08:47→20:00)
[2019-10-31] MEDS: DULOXETINE HCL 30 MG CAP PO SCH (08:47)
[2019-10-31] MEDS: BuPROPion XL 150 MG TABCR PO SCH (08:47)
[2019-10-31] MEDS: FERROUS SULFATE 325 MG TAB PO SCH (08:47)
[2019-10-31] MEDS: MULTIVITAMIN TAB PO SCH (08:48)
[2019-10-31] MEDS: dilTIAZem ER 180 MG CAPCR PO SCH (08:48)
[2019-10-31] MEDS: RIVAROXABAN 15 MG TAB PO SCH ×2 (08:48→20:01)
[2019-10-31] MEDS: PANTOprazole 40 MG TAB PO SCH (08:48)
[2019-10-31] MEDS: cefTRIAXone SODIUM 2,000 MG in DEXTROSE 5% 50 ML IV SCH (08:53)
--- NOTE | 2019-10-31 09:13 | Hospitalist Progress Note ---
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 - Treated empirically with Cefepime, Flagyl, Vancomycin, Zosyn on arrival, transitioned to vanc/ceftriaxone shortly after. - After blood and specimen cultures grew Pasteurella multocida, vancomycin was discontinued, ceftriaxone IV continued. - Case was discussed with [facility] ID: - Recommend 6 week IV treatment and then likely 3-6 month oral suppressive therapy (Augmentin). - 6 week [facility] ID follow up. - Awaiting note for further lab recommendations regarding sensitivities. - Patient PICC placed yesterday for daily outpatient antibiotics at [place] [facility] on discharge. - [facility] unable to take new patients on weekends, discharge likely Saturday following establishment at [place] [facility]. - Ortho Consulted this admission as below: - Knee aspirated - showing WBC, but no growths. - I&D of R knee and Washout of wound 10/28/19. - Ortho signed off; for follow up with Dr. Berman service in 10-12 days following discharge. - Pain control with scheduled Tylenol and Toradol. Morphine/Hydromorphone PRN but has not required for several days. Right Leg DVT: - DVT noted on US at R posterior tibial and peroneal vein, not extending past the knee. - Lovenox transitioned to Xarelto 15mg BID x3 weeks, then 20mg daily following. Depression: - Continue bupropion, duloxetine, amitriptyline. GERD: - Continue Pantoprazole 40mg qAM. HLD: - Continue Simvastatin 20mg qHS. Dispo: Med/Surg FEN: Regular diet DVT: Rivaroxaban 15mg BID for 3 weeks, then 20mg daily following Code: Full (2) Closed fracture of right tibial plateau: (3) Cellulitis of leg, right: (4) Right leg DVT: (5) Depression: (6) GERD (gastroesophageal reflux disease): (7) Hypertension: Admission and Anticipated Discharge Date Admission Date: October 27, 2019 Supervising Physician Co-Signing Physician Notes I personally examined the patient and verified all sandhu points of history and exam, discussed case, and agree with decision making with Dr Archibald. PICC in, pain controlled, feeling good overall. vitals noted nad heent nc at mmm breathing unlabored no accessory muscles good effort sepsis and septic knee - from [place]. suspect dog > cat due to proximity when she sleeps. rocephin x 6wks (then either hardware removal as fracture heals, or ongoing suppressive therapy) as current therapy plan - ?transition to augmentin at some point possibly when sensitivities come back if profile favorable - will be ID decision as outpt. improving. distal dvt - anticoagulation (change to DOAC) - provoked, distal. probably won't need more than 3 months of treatment (based on clot alone, one could argue watchful waiting - but with immobility and knee swelling, clot would almost certainly propagate, so treat to mitigate this risk - then once she's more mobile will be safer to drop blood thinner -- ie if she's not mobile at 3 months might need to treat longer due to ongoing risk (but i suspect she'll do well) otherwise as above Subjective Patient without acute events overnight. Some mild pain in her R knee, but otherwise well and without complaints this AM. Does not endorse fevers, chills, SOB, CP, nausea or vomiting. Able to get up to use the bathroom without difficulty. Review of Systems Review of Systems: All systems reviewed & are unremarkable except as noted in Subjective Physical Exam Constitutional: WD/WN, vitals as above Respiratory: normal respiratory effort, lungs clear to auscultation Cardiovascular: RRR, no murmur, no edema Vessels: posterior tibial pulses present (bilateral) and dorsalis pedis pulses present (bilateral) Gastrointestinal (Abdomen): normal bowel sounds, soft, nontender, no hepatosplenomegaly Skin: R knee with dressing in place, incision clean dry and intact Neurologic: moves all extremities lower extremities neurovascularly intact bilaterally Psychiatric: A+Ox3, euthymic affect Results & Data Results & Data ([facility]) Vital Signs (Past 12 Hours) Vital Signs Temp Pulse Resp BP Pulse Ox 10/31/19 08:46 95 10/31/19 08:44 78 133/70 88 L 10/31/19 07:52 37.1 C 77 16 138/74 94 10/31/19 00:10 36.8 C 76 14 115/58 L 92 Resident Activity Tracking Resident Involvement: Resident Care Provided Care Provided: Adult Hospital Medicine (1) Septic arthritis Laterality: right Septic arthritis location: knee Septic arthritis organism: due to other bacteria Qualified Code(s): M00.861 - Arthritis due to other bacteria, right knee (2) Closed fracture of right tibial plateau Encounter type: subsequent encounter Fracture healing: with routine healing Qualified Code(s): S82.141D - Displaced bicondylar fracture of right tibia, subsequent encounter for closed fracture with routine healing (3) Depression Active/Remission status: remission status unspecified Depression Type: major depressive disorder Major depression recurrence: unspecified whether recurrent Qualified Code(s): F32.9 - Major depressive disorder, single episode, unspecified (4) Right leg DVT Affected thrombotic vein of extremity: unspecified vein of extremity Chronicity: unspecified Qualified Code(s): I82.401 - Acute embolism and thrombosis of unspecified deep veins of right lower extremity (5) GERD (gastroesophageal reflux disease) Esophagitis presence: without esophagitis Qualified Code(s): K21.9 - Gastro- esophageal reflux disease without esophagitis (6) Hypertension Hypertension type: essential hypertension Qualified Code(s): I10 - Essential (primary) hypertension
--- NOTE | 2019-10-31 17:04 | Billing Data ---
Date of Service October 31, 2019 Coding Level of Care Code 25591 Subseq Hosp Care Lvl 2
[2019-10-31] MEDS: ACETAMINOPHEN 500 MG TAB PO PRN (17:47)
[2019-10-31] MEDS: OXYCODONE HCL IR 5 MG TAB (IMMEDIATE RELEASE) PO PRN (19:59)
[2019-10-31] MEDS: SENNA 8.6 MG TAB PO SCH (20:00)
[2019-10-31] MEDS: SIMVASTATIN 20 MG TAB PO SCH (20:01)
[2019-10-31] MEDS: ROPINIROLE HCL 0.25 MG TABLET PO SCH (20:02)
[2019-10-31] MEDS: AMITRIPTYLINE HCL 50 MG TAB PO SCH (20:02)
[2019-11-01] MEDS: KETOROLAC 30 MG/ML VIAL IV SCH ×3 (05:05→16:45)
[2019-11-01] MEDS: ACETAMINOPHEN 500 MG TAB PO SCH ×3 (05:08→20:09)
[2019-11-01 06:26] LABS: Basophils # (auto) 0.01 K/uL (0-0.2); Basophils % (auto) 0.1 %; Eosinophils # (auto) 0.11 K/uL (0-0.5); Eosinophils % (auto) 1.6 %; Hematocrit (blood only) 22.6 % (37-47); Hemoglobin 7.6 g/dL (12.0-16.0); Immature Granulocytes # (auto) 0.07 K/uL (0.00-0.02); Lymphocytes % (auto) 14.2 %; Mean Corpuscular Hemoglobin 30.3 pg (25-34); Mean Corpuscular Hgb Conc 33.6 g/dL (32-36); Monocytes # (auto) 0.91 K/uL (0.11-0.59); Monocytes % (auto) 12.9 %; Neutrophils # (auto) 4.96 K/uL (1.4-6.5); Neutrophils % (auto) 70.2 %; Platelet Count 372 K/uL (130-400); RDW Standard Deviation 43.1 fL (36.4-46.3); Red Blood Count 2.51 M/uL (4.2-5.4); White Blood Count 7.06 K/uL (4.8-10.8)
[2019-11-01 06:45] LABS: BUN Creatinine Ratio 14.2 (10-20); Calcium 8.6 mg/dl (8.5-10.1); Est GFR (African American) 93.9; Potassium 3.1 mmol/L (3.5-5.1)
[2019-11-01 06:54] LABS: RBC Morphology Unremarkable
--- NOTE | 2019-11-01 07:04 | Orthopedic Progress Note ---
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 discussed with [facility] ID: - Recommend 6 week IV treatment and then likely 3-6 month oral suppressive therapy (Augmentin). - 6 week [facility] ID follow up. - Patient PICC placed yesterday for daily outpatient antibiotics at [facility] on discharge. - [facility] unable to take new patients on weekends, discharge likely Saturday following establishment at [facility]. Right Leg DVT: - DVT noted on US at R posterior tibial and peroneal vein, not extending past the knee. - Lovenox transitioned to Xarelto 15mg BID x3 weeks, then 20mg daily following. -Will need 6 weeks of IV antibiotics due to infection and retained hardware. Planning for Rocephin daily. -Orthopedically stable, will need f/u with Dr Berman team at [facility] in 10-12 days. please contact with any questions or concerns. (2) Septic arthritis: Admission and Anticipated Discharge Date Admission Date: October 27, 2019 Subjective POD #4 Review of Systems Constitutional: no fever, no chills and no body aches Respiratory: no cough Cardiovascular: no chest pain, no dyspnea and no orthopnea Gastrointestinal: no nausea and no vomiting Physical Exam Physical Exam: Vital Signs Temp 37.1 C 10/31/19 23:40 Pulse 106 H 10/31/19 23:01 Resp 14 10/31/19 23:01 BP 147/65 H 10/31/19 23:40 Pulse Ox 92 10/31/19 23:01 Intake & Output 10/31/19 11/01/19 11/01/19 18:59 06:59 18:59 Intake Total 70 / 70 Balance 70 / 70 Intake: IV 70 / 70 Rocephin 2,000 mg In D5w 50 ml 70 / 70 @ 100 mls/hr I V DAILY [facility] Rx#: [id number] Constitutional: WD/WN, vitals as above no acute distress Right Knee: NVDI, calf SNT, DP palpable, incision clean and dry Results & Data ([facility]) Vital Signs (Past 12 Hours) Vital Signs Temp Pulse Resp BP Pulse Ox 10/31/19 23:40 37.1 C 147/65 H 10/31/19 23:01 37.8 C H 106 H 14 178/77 H 92 Laboratory Results Laboratory Results WBC 7.06 K/uL (4.8-10.8) 11/01/19 05:51 RBC 2.51 M/uL (4.2-5.4) L 11/01/19 05:51 Hgb 7.6 g/dL (12.0-16.0) L 11/01/19 05:51 Hct 22.6 % (37-47) L 11/01/19 05:51 MCV 90.0 fL (80-100) 11/01/19 05:51 MCH 30.3 pg (25-34) 11/01/19 05:51 MCHC 33.6 g/dL (32-36) 11/01/19 05:51 RDW Std Deviation 43.1 fL (36.4-46.3) 11/01/19 05:51 RDW Coeff of Florina 13.0 % (11.5-14.5) 11/01/19 05:51 Plt Count 372 K/uL (130-400) 11/01/19 05:51 MPV 9.0 fL (7.4-10.4) 11/01/19 05:51 Immature Gran % (Auto) 1.0 % 11/01/19 05:51 Neut % (Auto) 70.2 % 11/01/19 05:51 Lymph % (Auto) 14.2 % 11/01/19 05:51 [place] % (Auto) 12.9 % 11/01/19 05:51 Eos % (Auto) 1.6 % 11/01/19 05:51 Baso % (Auto) 0.1 % 11/01/19 05:51 Neut # (Auto) 4.96 K/uL (1.4-6.5) 11/01/19 05:51 Lymph # (Auto) 1.00 K/uL (1.2-3.4) L 11/01/19 05:51 [place] # (Auto) 0.91 K/uL (0.11-0.59) H 11/01/19 05:51 Eos # (Auto) 0.11 K/uL (0-0.5) 11/01/19 05:51 Baso # (Auto) 0.01 K/uL (0-0.2) 11/01/19 05:51 Immature Gran # (Auto) 0.07 K/uL (0.00-0.02) H 11/01/19 05:51 RBC Morphology Unremarkable 11/01/19 05:51 ESR 37 mm/hr (0-21) H 10/27/19 11:16 PT 11.3 Seconds (9.0-12.0) 10/27/19 11:16 INR 1.1 (0.9-1.1) 10/27/19 11:16 APTT 29.6 Seconds (21.0-31.0) 10/27/19 11:16 PTT Ratio 1.1 10/27/19 11:16 Sodium 139 mmol/L (136-145) 11/01/19 05:51 Potassium 3.1 mmol/L (3.5-5.1) L 11/01/19 05:51 Chloride 103 mmol/L (98-107) 11/01/19 05:51 Carbon Dioxide 30 mmol/L (21-32) 11/01/19 05:51 Anion Gap 6.0 (3-11) 11/01/19 05:51 BUN 11 mg/dl (7-18) 11/01/19 05:51 Creatinine 0.77 mg/dl (0.6-1.2) 11/01/19 05:51 Est Cr Clr Drug Dosing 87.0 ml/min 11/01/19 05:51 Est GFR ( Amer) 93.9 11/01/19 05:51 Est GFR (Non-Af Amer) 81.0 11/01/19 05:51 BUN/Creatinine Ratio 14.2 (10-20) 11/01/19 05:51 Glucose 98 mg/dl (70-99) 11/01/19 05:51 Lactate 2.0 mmol/L (0.4-2.0) 10/27/19 13:18 Calcium 8.6 mg/dl (8.5-10.1) 11/01/19 05:51 Magnesium 1.7 mg/dl (1.8-2.4) L 10/27/19 11:16 Total Bilirubin 0.7 mg/dl (0.2-1) 10/27/19 11:16 AST 12 U/L (15-37) L 10/27/19 11:16 ALT 21 U/L (12-78) 10/27/19 11:16 Alkaline Phosphatase 77 U/L (45-117) 10/27/19 11:16 C-Reactive Protein 4.31 mg/dl (0-0.29) H 10/27/19 11:16 Total Protein 7.6 gm/dl (6.4-8.2) 10/27/19 11:16 Albumin 3.4 gm/dl (3.4-5.0) 10/27/19 11:16 Globulin 4.2 gm/dl (2.5-4.0) H 10/27/19 11:16 Albumin/Globulin Ratio 0.8 (0.9-2) L 10/27/19 11:16 Procalcitonin 7.73 ng/ml (0-0.5) H 10/27/19 11:16 Synovial Source KNEE 10/28/19 10:20 Synovial Color IQRA 10/28/19 10:20 Synovial Appearance CLOUDY 10/28/19 10:20 Synovial WBC 43781 /ul (0-200) H 10/28/19 10:20 Synovial RBC 74463 /uL 10/28/19 10:20 Synovial Polynuclear % 93.3 % 10/28/19 10:20 Synovial Mononuclear % 6.7 % 10/28/19 10:20 Vancomycin Trough 16.2 mcg/ml (See Comment) 10/29/19 01:35 COVID-19 Eval Order Covid19 [facility] 10/28/19 11:00 SARS-CoV-2, RNA, NAAT NEGATIVE (NEGATIVE) 10/28/19 11:00 (1) Septic arthritis Laterality: right Septic arthritis location: knee Septic arthritis organism: due to other bacteria Qualified Code(s): M00.861 - Arthritis due to other bacteria, right knee
[2019-11-01] MEDS ORDERED: POTASSIUM CHLORIDE 20 MEQ TABCR PO ONE (07:30)
--- NOTE | 2019-11-01 07:56 | Hospitalist Progress Note ---
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 Septic Arthritis due to Pasteurella multocida infection of tibial plateau fracture s/p ORIF: - ORIF performed on 10/16/2019. - Treated empirically with Cefepime, Flagyl, Vancomycin, Zosyn on arrival, transitioned to vanc/ceftriaxone shortly after. - After blood and specimen cultures grew Pasteurella multocida, vancomycin was discontinued, ceftriaxone IV continued. - Case was discussed with [facility] ID: - Recommend 6 week IV treatment and then likely 3-6 month oral suppressive therapy (Augmentin). - 6 week [facility] ID follow up. - Awaiting note for further lab recommendations regarding sensitivities. - Patient PICC placed 10/29 for daily outpatient antibiotics at [facility] on discharge. - [facility] unable to take new patients on weekends, discharge likely tomorrow/Saturday following establishment at [facility]. - Ortho Consulted this admission as below: - Knee aspirated - showing WBC, but no growths. - I&D of R knee and Washout of wound 10/28/19. - Ortho signed off; for follow up with Dr. Berman service in 10-12 days following discharge. - Pain control with scheduled Tylenol and Toradol. Right Leg DVT: - DVT noted on US at R posterior tibial and peroneal vein, not extending past the knee. - Lovenox transitioned to Xarelto 15mg BID x3 weeks, then 20mg daily following. Depression: - Continue bupropion, duloxetine, amitriptyline. GERD: - Continue Pantoprazole 40mg qAM. HLD: - Continue Simvastatin 20mg qHS. Dispo: Med/Surg FEN: Regular diet DVT: Rivaroxaban 15mg BID for 3 weeks, then 20mg daily following Code: Full (2) Closed fracture of right tibial plateau: (3) Cellulitis of leg, right: (4) Right leg DVT: (5) Depression: (6) GERD (gastroesophageal reflux disease): (7) Hypertension: Admission and Anticipated Discharge Date Admission Date: October 27, 2019 Supervising Physician Co-Signing Physician Notes I personally examined the patient and verified all sandhu points of history and exam, discussed case, and agree with decision making with Dr Archibald. pain controlled. doing better overall. hopeful for discharge tomorrow vitals noted nad heent nc at mmm breathing unlabored no accessory muscles good effort, wound c/d/i no erythema sepsis and septic knee - from [place]. suspect dog > cat due to proximity when she sleeps. rocephin x 6wks (then either hardware removal as fracture heals, or ongoing suppressive therapy) as current therapy plan - ?transition to augmentin at some point possibly when sensitivities come back if profile favorable - will be ID decision as outpt. improving. for IV as outpt starting saturday so as long as ongoing improvment she should be able to go home after tomorrow's rocephin dose here distal dvt - anticoagulation (xarelto) - provoked, distal. probably won't need more than 3 months of treatment (based on clot alone, one could argue watchful waiting - but with immobility and knee swelling, clot would almost certainly propagate, so treat to mitigate this risk - then once she's more mobile will be safer to drop blood thinner -- ie if she's not mobile at 3 months might need to treat longer due to ongoing risk (but i suspect she'll do well) otherwise as above Subjective Patient did not have any acute events overnight. She has some knee pain worse wi activity but about the same as yesterday. Feels like she has good control with the tylenol and toradol; did not feel that the oxycodone was helpful to her pain. Denies nausea or vomiting, chest pain, shortness of breath, abdominal pain, subjective fevers or chills. Review of Systems Review of Systems: All systems reviewed & are unremarkable except as noted in Subjective Physical Exam Constitutional: WD/WN, vitals as above Respiratory: normal respiratory effort, lungs clear to auscultation Cardiovascular: RRR, no murmur, no edema Vessels: posterior tibial pulses present (bilateral) and dorsalis pedis pulses present (bilateral) Gastrointestinal (Abdomen): normal bowel sounds, soft, nontender, no hepatosplenomegaly Skin: R knee with dressing in place, incision clean dry and intact Neurologic: moves all extremities lower extremities neurovascularly intact bilaterally Psychiatric: A+Ox3, euthymic affect Results & Data Results & Data ([facility]) Vital Signs (Past 12 Hours) Vital Signs Temp Pulse Resp BP Pulse Ox 10/31/19 23:40 37.1 C 147/65 H 10/31/19 23:01 37.8 C H 106 H 14 178/77 H 92 Resident Activity Tracking Resident Involvement: Resident Care Provided Care Provided: Adult [facility] Medicine (1) Septic arthritis Laterality: right Septic arthritis location: knee Septic arthritis organism: due to other bacteria Qualified Code(s): M00.861 - Arthritis due to other bacteria, right knee (2) Closed fracture of right tibial plateau Encounter type: subsequent encounter Fracture healing: with routine healing Qualified Code(s): S82.141D - Displaced bicondylar fracture of right tibia, subsequent encounter for closed fracture with routine healing (3) Depression Active/Remission status: remission status unspecified Depression Type: major depressive disorder Major depression recurrence: unspecified whether recurrent Qualified Code(s): F32.9 - Major depressive disorder, single episode, unspecified (4) Right leg DVT Affected thrombotic vein of extremity: unspecified vein of extremity Chronicity: unspecified Qualified Code(s): I82.401 - Acute embolism and thrombosis of unspecified deep veins of right lower extremity (5) GERD (gastroesophageal reflux disease) Esophagitis presence: without esophagitis Qualified Code(s): K21.9 - Gastro-esophageal reflux disease without esophagitis (6) Hypertension Hypertension type: essential hypertension Qualified Code(s): I10 - Essential (primary) hypertension
[2019-11-01] MEDS: POTASSIUM CHLORIDE / WTR 10 MEQ/100 ML PLCT IV SCH ×2 (08:11→10:00)
[2019-11-01] MEDS: DOCUSATE SODIUM 100 MG CAP PO SCH ×2 (08:30→20:07)
[2019-11-01] MEDS: DULOXETINE HCL 30 MG CAP PO SCH (08:31)
[2019-11-01] MEDS: PANTOprazole 40 MG TAB PO SCH (08:31)
[2019-11-01] MEDS: FERROUS SULFATE 325 MG TAB PO SCH (08:31)
[2019-11-01] MEDS: MULTIVITAMIN TAB PO SCH (08:31)
[2019-11-01] MEDS: RIVAROXABAN 15 MG TAB PO SCH ×2 (08:32→20:08)
[2019-11-01] MEDS: dilTIAZem ER 180 MG CAPCR PO SCH (08:32)
[2019-11-01] MEDS: BuPROPion XL 150 MG TABCR PO SCH (08:32)
[2019-11-01] MEDS: cefTRIAXone SODIUM 2,000 MG in DEXTROSE 5% 50 ML IV SCH (09:23)
[2019-11-01] MEDS ORDERED: KETOROLAC TROMETHAMINE 15 MG/ML VIAL IV PRN (18:44)
--- NOTE | 2019-11-01 18:46 | Billing Data ---
Date of Service November 01, 2019 Coding Level of Care Code 17897 Subseq Hosp Care Lvl 2
[2019-11-01] MEDS: OXYCODONE HCL IR 5 MG TAB (IMMEDIATE RELEASE) PO PRN (19:00)
[2019-11-01] MEDS: SENNA 8.6 MG TAB PO SCH (20:07)
[2019-11-01] MEDS: SIMVASTATIN 20 MG TAB PO SCH (20:08)
[2019-11-01] MEDS: AMITRIPTYLINE HCL 50 MG TAB PO SCH (20:08)
[2019-11-01] MEDS: ROPINIROLE HCL 0.25 MG TABLET PO SCH (20:09)
[2019-11-02] MEDS: ACETAMINOPHEN 500 MG TAB PO SCH ×3 (05:26→22:17)
[2019-11-02 06:28] LABS: Basophils # (auto) 0.03 K/uL (0-0.2); Basophils % (auto) 0.3 %; Eosinophils # (auto) 0.07 K/uL (0-0.5); Eosinophils % (auto) 0.7 %; Hematocrit (blood only) 23.1 % (37-47); Hemoglobin 7.6 g/dL (12.0-16.0); Immature Granulocytes # (auto) 0.15 K/uL (0.00-0.02); Immature Granulocytes % (auto) 1.6 %; Lymphocytes # (auto) 1.52 K/uL (1.2-3.4); Mean Corpuscular Hemoglobin 29.8 pg (25-34); Mean Corpuscular Hgb Conc 32.9 g/dL (32-36); Mean Corpuscular Volume 90.6 fL (80-100); Mean Platelet Volume 9.1 fL (7.4-10.4); Monocytes # (auto) 1.01 K/uL (0.11-0.59); Monocytes % (auto) 10.6 %; Neutrophils # (auto) 6.72 K/uL (1.4-6.5); Neutrophils % (auto) 70.8 %; Platelet Count 363 K/uL (130-400); RDW Coefficient of Variation 13.4 % (11.5-14.5); RDW Standard Deviation 44.3 fL (36.4-46.3); Red Blood Count 2.55 M/uL (4.2-5.4)
[2019-11-02 07:13] LABS: RBC Morphology Unremarkable
[2019-11-02] MEDS: cefTRIAXone SODIUM 2,000 MG in DEXTROSE 5% 50 ML IV SCH (08:27)
[2019-11-02] MEDS: DULOXETINE HCL 30 MG CAP PO SCH (08:28)
[2019-11-02] MEDS: BuPROPion XL 150 MG TABCR PO SCH (08:28)
[2019-11-02] MEDS: dilTIAZem ER 180 MG CAPCR PO SCH (08:28)
[2019-11-02] MEDS: DOCUSATE SODIUM 100 MG CAP PO SCH ×2 (08:28→20:31)
[2019-11-02] MEDS: RIVAROXABAN 15 MG TAB PO SCH ×2 (08:29→20:33)
[2019-11-02] MEDS: MULTIVITAMIN TAB PO SCH (08:29)
[2019-11-02] MEDS: PANTOprazole 40 MG TAB PO SCH (08:29)
[2019-11-02] MEDS: FERROUS SULFATE 325 MG TAB PO SCH (08:29)
[2019-11-02] MEDS: OXYCODONE HCL IR 5 MG TAB (IMMEDIATE RELEASE) PO PRN ×2 (10:12→16:03)
--- NOTE | 2019-11-02 11:05 | Hospitalist Progress Note ---
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 Septic Arthritis due to Pasteurella multocida infection of tibial plateau fracture s/p ORIF: - ORIF performed on 10/16/2019. - Treated empirically with Cefepime, Flagyl, Vancomycin, Zosyn on arrival, transitioned to vanc/ceftriaxone shortly after. - After blood and specimen cultures grew Pasteurella multocida, vancomycin was discontinued, ceftriaxone IV continued. - Case was discussed with Pancho ID: - Recommend 6 week IV treatment and then likely 3-6 month oral suppressive therapy (Augmentin). - 6 week [facility] ID follow up. - Awaiting note for further lab recommendations regarding sensitivities. - Patient PICC placed 10/29 for daily outpatient antibiotics at [facility] on discharge. - Ortho Consulted this admission as below: - Knee aspirated - showing WBC, but no growths. - I&D of R knee and Washout of wound 10/28/19. - Ortho signed off; for follow up with Dr. Berman service in 10-12 days following discharge. - Pain control with scheduled Tylenol and Toradol. - Plan for discharge tomorrow once confirmed that [facility] can accommodate patient. Right Leg DVT-provoked: - DVT noted on US at R posterior tibial and peroneal vein, not extending past the knee. - Lovenox transitioned to Xarelto 15mg BID x3 weeks, then 20mg daily following. Depression: - Continue bupropion, duloxetine, amitriptyline. GERD: - Continue Pantoprazole 40mg qAM. HLD: - Continue Simvastatin 20mg qHS. Dispo: Med/Surg FEN: Regular diet DVT: Rivaroxaban 15mg BID for 3 weeks, then 20mg daily following Code: Full (2) Closed fracture of right tibial plateau: (3) Cellulitis of leg, right: (4) Right leg DVT: (5) Depression: (6) GERD (gastroesophageal reflux disease): (7) Hypertension: Admission and Anticipated Discharge Date Admission Date: October 27, 2019 Supervising Physician Co-Signing Physician Notes Patient seen and examined independently of PGY-2 Dr. Dejesus. Agree with history, exam findings, assessment and plan of care as outlined. In brief, Ms. Dias is a 64 year old with history of right tibial plateau fracture s/p ORIF admitted with septic arthritis following surgical intervention on 10/16/2019. Today, she continues to have post-operative pain. Using IV toradol. Reluctant to use oxycodone. VS reviewed. Nursing notes reviewed. Right knee is dressed with BK wrap. Tender in the popliteal fossa/upper calf on the right. 1. Septic arthritis. s/p I&D/washout with ortho on ultures grew out Pasteurella. On ceftriaxone. PICC placed. Will need 6 weeks of IV treatment then 3-6 months of oral suppressive therapy. Not able to get tomorrow's dose at [facility] so will need to stay overnight. 2. Right leg DVT, acute, provoked. On Xarelto 15mg BID x 3 weeks then increase to 20mg daily. 3. Post-operative anemia. Hgb 7.6. Asymptomatic. Monitor. Dispo: possible discharge tomorrow after AM cetriaxone dose. Subjective Patient evaluated at the bedside this AM with her present as well. Patient noted that she slept great overnight, but that this morning was having more pain in her R knee as she did not ask for anything overnight and was not awoken since her medications were PRN. She feels that her pain is fairly well controlled when her medications are scheduled. She otherwise has no other complaints at this time. Denies fever, chills, SOB, chest pain. Review of Systems Constitutional: no fever and no chills Respiratory: no cough, no chest congestion, no dyspnea and no pain on inspiration Cardiovascular: no chest pain, no dyspnea, no dyspnea on exertion and no palpitations Gastrointestinal: no abdominal pain, no nausea and no vomiting Musculoskeletal: + joint pain Physical Exam Constitutional: well developed and well nourished; no acute distress Respiratory: normal respiratory effort, lungs clear to auscultation Cardiovascular: RRR, no murmur, no edema Vessels: posterior tibial pulses present and dorsalis pedis pulses present Gastrointestinal (Abdomen): normal bowel sounds, soft, nontender, no hepatosplenomegaly Results & Data Results & Data ([facility]) Vital Signs (Past 12 Hours) Vital Signs Temp Pulse Resp BP Pulse Ox 09/07/20 07:51 37.3 C 87 16 145/76 H 93 Resident Activity Tracking Resident Involvement: Resident Care Provided Care Provided: Adult Hospital Medicine (1) Septic arthritis Laterality: right Septic arthritis location: knee Septic arthritis organism: due to other bacteria Qualified Code(s): M00.861 - Arthritis due to other bacteria, right knee (2) Closed fracture of right tibial plateau Encounter type: subsequent encounter Fracture healing: with routine healing Qualified Code(s): S82.141D - Displaced bicondylar fracture of right tibia, subsequent encounter for closed fracture with routine healing (3) Depression Active/Remission status: remission status unspecified Depression Type: major depressive disorder Major depression recurrence: unspecified whether recurrent Qualified Code(s): F32.9 - Major depressive disorder, single episode, unspecified (4) Right leg DVT Affected thrombotic vein of extremity: unspecified vein of extremity Chronicity: unspecified Qualified Code(s): I82.401 - Acute embolism and thrombosis of unspecified deep veins of right lower extremity (5) GERD (gastroesophageal reflux disease) Esophagitis presence: without esophagitis Qualified Code(s): K21.9 - Gastro- esophageal reflux disease without esophagitis (6) Hypertension Hypertension type: essential hypertension Qualified Code(s): I10 - Essential (primary) hypertension
[2019-11-02] MEDS ORDERED: KETOROLAC TROMETHAMINE 15 MG/ML VIAL IV SCH (11:15)
[2019-11-02] MEDS: KETOROLAC TROMETHAMINE 10 MG TABLET PO SCH ×2 (16:58→22:17)
[2019-11-02] MEDS: SENNA 8.6 MG TAB PO SCH (20:31)
[2019-11-02] MEDS: ROPINIROLE HCL 0.25 MG TABLET PO SCH (20:33)
[2019-11-02] MEDS: AMITRIPTYLINE HCL 50 MG TAB PO SCH (20:33)
[2019-11-02] MEDS: SIMVASTATIN 20 MG TAB PO SCH (20:33)
[2019-11-03] MEDS: ACETAMINOPHEN 500 MG TAB PO SCH (05:48)
[2019-11-03] MEDS: KETOROLAC TROMETHAMINE 10 MG TABLET PO SCH ×2 (05:49→10:31)
[2019-11-03] MEDS: DOCUSATE SODIUM 100 MG CAP PO SCH (08:12)
[2019-11-03] MEDS: FERROUS SULFATE 325 MG TAB PO SCH (08:12)
[2019-11-03] MEDS: DULOXETINE HCL 30 MG CAP PO SCH (08:12)
[2019-11-03] MEDS: MULTIVITAMIN TAB PO SCH (08:13)
[2019-11-03] MEDS: PANTOprazole 40 MG TAB PO SCH (08:13)
[2019-11-03] MEDS: dilTIAZem ER 180 MG CAPCR PO SCH (08:14)
[2019-11-03] MEDS: BuPROPion XL 150 MG TABCR PO SCH (08:14)
[2019-11-03] MEDS: RIVAROXABAN 15 MG TAB PO SCH (08:14)
[2019-11-03] MEDS: cefTRIAXone SODIUM 2,000 MG in DEXTROSE 5% 50 ML IV SCH (08:20)
--- NOTE | 2019-11-03 09:25 | Discharge Summary ---
Date of Service November 03, 2019 Admission HPI Per Admitting Provider very pleasant 64f known to me from when she was here a little over a week ago for tibial plateau fracture and repair. was at home doing well - yesterday morning feeling fine- then as the day went on she noted fairly abruptly onset of R knee pain as well as fevers, chills, and sweats. she bundled up with blankets and tried to sleep but was unable to really ever get comfortable - notes that the pain in her knee - and especially the back of her knee - was unbearable. ongoing f/c/s. eventually presented to ER - found to have an overall septic appearance, we were asked to see for ongoing care. no other complaints - no respiratory, GI, , etc. 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 Admission Exam Per Admitting Provider gen aaox3 pleasant but fatigued appearing, does appear in discomfort from knee as well. no respiratory distress. appears ill but not fully toxic. heent nc at mmm neck full ROM cardio reg no r/m/g lungs cta b/l no rrw good effort no accessory muscles no conversational dyspnea no distress abd soft nd nt no masses ext no cyanosis, clubbing. LLE no edema no joint tenderness. RLE incision from prior surgery - still with kale. dark red appearance around incision - but not really very tender, no exudate. no fluctuance under incision. R knee with easily palpable moderate or maybe large effusion, fairly warm, surprisingly not red - but exquisitely tender on palpation of joint space at any angle - medial, lateral - and also palpably swollen and exquisitely tender posterior neuro - cn 2-12 grossly intact gross motor and sensory intact MSK - R knee described in extremities. L knee totally normal. no other notable bony abnormalities/joint effusions/etc mental - good recent and remote recall normal mood and affect, good judgement and insight Principal Diagnosis R Septic Knee Discharge Exam Constitutional well developed and well nourished; no acute distress Respiratory normal respiratory effort, lungs clear to auscultation Cardiovascular RRR, no murmur, no edema Vessels: posterior tibial pulses present and dorsalis pedis pulses present Gastrointestinal (Abdomen) normal bowel sounds, soft, nontender, no hepatosplenomegaly Discharge Data Allergies Allergy/AdvReac Type Severity Reaction Status Date / Time No Known Allergies Allergy Verified 10/27/19 16:35 Consultations 10/27/19 17:15 ED Decision to Admit Stat 10/27/19 21:05 Consult Orthopedic Surgery Routine 10/28/19 17:57 Consult Case Management - Discharge Planning Routine 10/28/19 19:28 Consult Infectious Diseases Routine 11/01/19 16:40 Consult [facility] atm servicer Routine Procedures Performed Operation Date: 10/28/19 10:30 Actual Procedures p Open Incision and Drainage,and (Right) - Shamar Berman MD s Arthroscopy incision and drainage of right knee joint (Right) - Shamar Berman MD Ordered Studies 10/27/19 13:44 CT knee RT wo con Stat 10/27/19 21:05 US venous doppler LE RT Urgent Hospital Course (1) Septic arthritis: Patient is a 64 year old female with PMHx R Tibial Plateau fx s/p ORIF, GERD, HTN, Depression admitted for septic arthritis and bacteremia from Pasteurella multocida. Septic Arthritis due to Pasteurella multocida infection of tibial plateau fracture s/p ORIF: - ORIF performed on 10/16/2019. - Treated empirically with Cefepime, Flagyl, Vancomycin, Zosyn on arrival, transitioned to vanc/ceftriaxone shortly after. - After blood and specimen cultures grew Pasteurella multocida, vancomycin was discontinued, and ceftriaxone IV continued. - Case was discussed with [facility] ID: - Recommend 6 week IV treatment and then likely 3-6 month oral suppressive therapy (Augmentin). - 6 week [facility] ID follow up. - Awaiting note for further lab recommendations regarding sensitivities, was still pending by discharge. - Patient [facility] 10[facility]. - Ortho Consulted this admission as below: - Knee aspirated - showing WBC, but no growths. - I&D of R knee and Washout of wound 10/28/19. - Ortho signed off; for follow up with Dr. Berman service in 10-12 days following discharge. - Pain control with scheduled Tylenol and Toradol - patient provided with prescriptions for both upon discharge. Right Leg DVT: - DVT noted on US at R posterior tibial and peroneal vein, not extending past the knee. - Lovenox transitioned to Xarelto 15mg BID x3 weeks, then 20mg daily following. - Patient to switch to the 20mg dosing on 11/20/19 Depression: - Continued bupropion, duloxetine, amitriptyline. GERD: - Continued Pantoprazole 40mg qAM. HLD: - Continued Simvastatin 20mg qHS. (2) Closed fracture of right tibial plateau: (3) Cellulitis of leg, right: (4) Right leg DVT: (5) Depression: (6) GERD (gastroesophageal reflux disease): (7) Hypertension: Total Time Total Time Spent Total Time Spent (In Minutes): see attending attestation Discharge Plan Discharge Items Patient Disposition: Home - Self-Care Reason For Visit: SEPTIC KNEE Discharge Diagnosis: R Septic Knee Activity: Per Instructions section Non-emergency contact: Primary Care Provider and Surgeon Call non-emergency contact if: you have any medication questions, your symptoms worsen, you have a fever, your wound has increased redness, your wound has increased drainage and your wound pain has increased Follow-up/Referrals: Shamar Berman MD [Surgeon] - 11/19/19 9:00 am (APPT WITH MALATHI HUSAIN IN [place] [facility] *OFFICE ADDRESS HAS CHANGED: [address], [address], [address], [facility] [place] [address]) Eliane Heller M.D. [Primary Care Provider] - 11/12/19 9:00 am (APPT WITH MALATHI SANCHEZ) Ector Paiz, DO [Outside Practitioners] - (OFFICE SPOKE WITH ERLINDA, PATIENT CAN'T MAKE APPT AT THIS TIME DUE TO NEEDING PCP REFERRAL. ) Diet: Regular Addtl Attending Provider Instructions: Ms. Dias, It was our pleasure caring for you at [facility] from 10/29/19 to 11/03/19. Please see below for a summary of your care and future recommendations. Septic Arthritis due to Pasteurella multocida infection of tibial plateau fracture s/p ORIF: - You had a ORIF performed on 10/16/2019 for your R tibial plateau fracture. - You returned to the Emergency room due to worsening pain and swelling of your R knee and fevers/chills. - You were treated empirically with Cefepime, Flagyl, Vancomycin, Zosyn on arrival, transitioned to vanc/ceftriaxone shortly after. - After blood and specimen cultures grew Pasteurella multocida, vancomycin was discontinued, ceftriaxone IV continued. - Youre case was discussed with [facility] ID: - Recommend 6 week IV treatment and then likely 3-6 month oral suppressive therapy (Augmentin). - 6 week [facility] follow up. - Awaiting note for further lab recommendations regarding sensitivities which are still pending. - [facility] 10/[facility]. - Ortho Consulted this admission as below: - Knee aspirated - showing WBC, but no growths. - I&D of R knee and Washout of wound 10/28/19. - Ortho signed off; for follow up with Dr. Antonella heaton in 10-12 days following discharge. - Continue Pain control after discharge with Oxycodone 5mg by mouth every 6 hours and Toradol 10mg by mouth every 6 hours Right Leg DVT-provoked: - DVT noted on US at R posterior tibial and peroneal vein, not extending past the knee. - You were started initially on Lovenox here which was transitioned to Xarelto. - Please continue Xarelto 15mg twice a day for the next 3 weeks (this ends 11/20/19) and then 20mg daily following until your PCP feels it can be discontinued - Please follow up with your PCP for continued management of this. Depression: - Continue bupropion, duloxetine, amitriptyline. GERD: - Continue Pantoprazole 40mg daily HLD: - Continue Simvastatin 20mg qHS. 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 * The application of an ice bag to the front and sides of the knee will decrease swelling and discomfort for the first 48 hours. * The small incisions may be sore and develop bruising. This bruising does not require any special care. SPECIAL PRECAUTIONS: * If you experience unusual pain unrelieved by prescriptions, temperature elevation (100 degrees F. or above) or progressive swelling or bleeding, you should contact our office at for further evaluation. * You may have been prescribed pain medication. If you experience nausea and/or fine skin rash, discontinue this medication and contact our office at for an alternate medication. DRESSING: * Dressing should be comfortable and absorb any leakage of fluid and/or blood. * The dressing may become moist or bloodstained. FOLLOW UP VISIT: If appointment is not already scheduled: Please call [facility] to make a follow-up appointment for your surgery at . Pending Studies at Discharge: No Stand-Alone Forms: [facility], Opioid Pain Management, Smoking Cessation Medications and DC Order Prescriptions: New Xarelto 15 mg Tablet 15 mg PO BID 16 Days Qty: 32 RF: 0 ketorolac 10 mg tablet 10 mg PO Q6H 10 Days Qty: 40 RF: 0 pantoprazole 40 mg Tablet,Delayed Release (Dr/Ec) 40 mg PO QAM 30 Days Qty: 30 RF: 2 oxycodone 5 mg tablet 5 mg PO Q6H PRN (Reason: pain) Qty: 15 RF: 0 Continued diltiazem HCl 180 mg Capsule,Extended Release 24 Hr 180 mg PO QAM RF: 0 amitriptyline 50 mg Tablet 50 mg PO HS RF: 0 simvastatin 20 mg Tablet 20 mg PO HS RF: 0 ropinirole 0.5 mg Tablet 0.5 mg PO HS RF: 0 lisinopril 5 mg Tablet 5 mg PO QAM RF: 0 ferrous sulfate 325 mg (65 mg iron) Tablet,Delayed Release (Dr/Ec) 325 mg PO QAM RF: 0 bupropion HCl 150 mg Tablet Extended Release 24 Hr 150 mg PO QAM RF: 0 duloxetine 30 mg Capsule,Delayed Release(Dr/Ec) 30 mg PO QAM RF: 0 omeprazole 20 mg Tablet,Delayed Release (Dr/Ec) 20 mg PO QAM RF: 0 aspirin 81 mg Tablet,Delayed Release (Dr/Ec) 81 mg PO BID 30 Days Qty: 60 RF: 0 acetaminophen 500 mg Tablet 1,000 mg PO Q8 14 Days Qty: 84 RF: 0 oxycodone 5 mg Tablet 5 mg PO Q4H MDD 6 tabs PRN (Reason: pain) Qty: 18 RF: 0 Discharge Orders: Discharge Order (Routine); Ordered 11/03/19 Ordered By: Samia Rodriguez/Other Patient Handouts: Understanding Deep Vein Thrombosis, Rivaroxaban oral tablets Admission Data Admit Date/Time: 10/27/19 18:13 Attending Provider: Samia Bates Admit Provider: Carlos Saez Primary Care Provider: Eliane Heller Other Providers: Carlos Saez ; Shamar Berman ; Gwyn Hedrick ; Korin Echeverria ; Lorenzo Baeza I. ; Dain Correa II ; Margoth Staley ; Sam Laguerre Other Interventions: Discharge Summary Assessment (RN) Last Done: 11/03/19 11:00 Supervising Physician Co-Signing Physician Notes Patient seen and examined independently of PGY-2 Dr. Dejesus. Agree with history, exam findings, assessment and plan of care as outlined. In brief, Ms. Dias is a 64 year old with history of right tibial plateau fracture s/p ORIF admitted with septic arthritis following surgical intervention on 10/16/2019. Today, she continues to have post-operative pain. Using oral toradol with good pain relief. VS reviewed. Nursing notes reviewed. Right knee is dressed with BK wrap. Tender in the popliteal fossa/upper calf on the right. 1. Septic arthritis. s/p I&D/washout with ortho on ultures grew out Pasteurella. On ceftriaxone. PICC placed. Will need 6 weeks of IV treatment then 3-6 months of oral suppressive therapy. Will get next dose of ceftriaxone at [facility]. 2. Right leg DVT, acute, provoked. On Xarelto 15mg BID x 3 weeks then increase to 20mg daily. 3. Post-operative anemia. Hgb 7.6. Asymptomatic. Monitor. I personally spent 20 minutes discharge planning for this patient. Resident Activity Tracking Resident Involvement: Resident Care Provided Care Provided: Adult Hospital Medicine
== END 2019-11-03 11:54 | disposition home or self-care (01) | DRG 856 ==
LOC: ED 12:21 → SUATTDRO 18:13 → 3E 18:13